=== PATIENT | female | born 1965 | race Caucasian/White ===

== ENCOUNTER 2017-08-05 14:20 | Inpatient (IN) | payer BC ==
[~2017-08-05] VITALS: Ht 162.6 cm; Wt 78.0 kg
[~2017-08-05 14:20] MED LIST: BENTYL PO; BROVANA15 MCG/2 M NEB; CHANTIX1 MG PO; CRESTOR10 MG PO; CRESTOR20 MG PO; ETODOLAC300 MG PO; FOLIC ACID0.4 MG PO; HYDROCHLOROTHIA25 MG PO; JANUVIA100 MG PO; MAXIDE PO; MAXZIDE 37.5 M1 EACH PO; NEXIUM40 MG PO; NORTRIPTYLINE H10 MG PO; PAXIL10 MG PO; PAXIL20 MG PO; PROVENTIL HFA6.7 GM; PROVENTIL HFA6.7 GM INH; PROVENTIL HFA6.7 GM PO; SYMBICORT 16010.2 GM; SYMBICORT 16010.2 GM INH; SYMBICORT 16010.2 GM PO; ULTRAM 50MG50 MG PO; VITAMIN B-12 INJ; VITAMIN B-121000 MCG PO; VITAMIN B12; VITAMIN D35000 UNIT PO; VITAMIN E; combivent inhaler
[2017-08-05] MEDS ORDERED: DIPHENHYDRAMINE HCL INJ 50 MG/ML VIAL IV ONE ×2 (15:15→22:15)
[2017-08-05] MEDS ORDERED: METHYLPREDNISOLONE SOD SUCC 125 MG/2ML VIAL IV ONE (15:15)
[2017-08-05] MEDS ORDERED: SODIUM CHLORIDE 0.9% 100 ML 100 ML IV ONE (15:15)
[2017-08-05 15:43] LABS: BASOPHILS # (AUTO) 0.1 (0.0-0.1); BASOPHILS % 0.2 % (0.0-1.0); EOSINOPHILS % 0.1 % (0.0-6.0); HEMATOCRIT 46.3 % (34.2-44.1); LYMPHOCYTES # (AUTO) 2.9 (1.0-3.2); LYMPHOCYTES % 12.5 % (18.0-39.1); MEAN CORPUSCULAR HEMOGLOBIN 28.7 pg (28-32); MEAN CORPUSCULAR HGB CONC 34.6 g/dL (31-35); MEAN CORPUSCULAR VOLUME 83.1 fL (81-99); MONOCYTES # (AUTO) 1.7 (0.2-0.8); MONOCYTES % 7.4 % (4.4-11.3); NEUTROPHILS # (AUTO) 18.4 (2.1-6.9); NEUTROPHILS % 79.2 % (38.7-80.0); PLATELET COUNT 346 x10e3/uL (140-360); RED BLOOD COUNT 5.57 x10e6/uL (3.6-5.1); RED CELL DISTRIBUTION WIDTH 14.8 % (11.7-14.4)
[2017-08-05 16:06] LABS: INR 1.06; PROTHROMBIN TIME 14.4 seconds (11.9-14.5)
[2017-08-05 16:07] LABS: PARTIAL THROMBOPLASTIN TIME 29.9 seconds (23.8-35.5)
[2017-08-05 16:16] LABS: ALANINE AMINOTRANSFERASE 19 IU/L (0-55); ALBUMIN 3.7 g/dL (3.5-5.0); ALBUMIN/GLOBULIN RATIO 0.9 (0.8-2.0); ALKALINE PHOSPHATASE 93 IU/L (40-150); AMYLASE 35 U/L (25-125); ANION GAP 15.4 mmol/L (8-16); BLOOD UREA NITROGEN 17 mg/dL (7-26); BUN/CREATININE RATIO 16 (6-25); CALCIUM 9.6 mg/dL (8.4-10.2); CARBON DIOXIDE 23 mmol/L (22-29); CHLORIDE 101 mmol/L (98-107); CREATINE KINASE 144 IU/L (29-168); CREATININE, SERUM 1.04 mg/dL (0.57-1.11); EST GLOMERULAR FILTRATION RATE 55 ML/MIN (60-); GLUCOSE 120 mg/dL (74-118); LIPASE 24 U/L (8-78); POTASSIUM 3.4 mmol/L (3.5-5.1); SODIUM 136 mmol/L (136-145)
[2017-08-05 16:27] LABS: EOSINOPHILS % (MANUAL) 1 % (0-7); LYMPHOCYTES % (MANUAL) 6 % (19-48); MONOCYTES % (MANUAL) 8 % (3.4-9.0); NEUTROPHILS % (MANUAL) 85 % (40-74)
[2017-08-05 16:28] LABS: PLATELET ESTIMATE ADEQUATE; PLATELET MORPHOLOGY COMMENT NORMAL; RBC MORPHOLOGY COMMENT NORMAL
[2017-08-05] MEDS: SODIUM CHLORIDE 0.9% 1000ML 1,000 ML IV SCH ×3 (18:54→19:22)
--- NOTE | 2017-08-05 19:00 | Diagnostic Imaging Report ---
EXAMINATION: Head and face CT without contrast. HISTORY: Status post fall, head and face trauma, pain COMPARISON: None. TECHNIQUE: Multidetector axial images were obtained without contrast from the foramen magnum to the vertex and over the face. The images were reconstructed using brain and bone algorithms. Thin section brain images were reformatted into coronal and sagittal planes. Intravenous contrast: None. Head CT findings: Skull: No lytic or blastic lesions. No fractures. Parenchyma: Normal. No mass, hemorrhage or CT evidence of acute vascular insult. Brain volume: Normal for age. Ventricles: No hydrocephalus or displacement. Arteries: No density suggestive of thrombus. Dural sinuses: No abnormal density. Extra-axial spaces: No abnormal density. Foramen magnum: No mass, Chiari malformation, or basilar invagination. Sella: No obvious mass. Face CT findings: Bones: Unremarkable. Facial soft tissues: Unremarkable. Orbits contents: Unremarkable. Paranasal sinuses and drainage pathways: Prominent mucosal inflammatory thickening of partial opacification of the left maxillary sinus. Otherwise clear. Nasal septum and nasal cavities: Midline. Anatomic variations: No significant anatomic variations. Teeth: No acute abnormality of the visualized teeth. IMPRESSION: 1. Normal head CT. Particularly no post traumatic intracranial hemorrhage. 2. No acute facial fractures. 3. Prominent mucosal inflammatory thickening and partial opacification of the left maxillary sinus, likely related to sinusitis. Signed by: Dr. Anahi Khalil M.D. on 08/05/2017 6:56 PM
[2017-08-05] MEDS ORDERED: FUROSEMIDE40 MG PO (19:45)
[2017-08-05] MEDS ORDERED: THEOPHYLLI80 MG/15 M PO (19:45)
[2017-08-05] MEDS ORDERED: PIPER-TAZ 3.375 GM 50 ML IV STA (21:30)
[2017-08-05] MEDS ORDERED: METRONIDAZOLE 500MG/NS 100ML 100 ML IV STA (21:30)
[2017-08-05 23:19] LABS: BILIRUBIN,URINE NEGATIVE (NEGATIVE); CLARITY,URINE HAZY (CLEAR); COLOR,URINE YELLOW (YELLOW); KETONES,URINE NEGATIVE (NEGATIVE); LEUKOCYTE ESTERASE ,URINE NEGATIVE (NEGATIVE); NITRITE,URINE NEGATIVE (NEGATIVE); URINE UROBILINOGEN 0.2 mg/dL (0.2 - 1)
[2017-08-05 23:21] LABS: PROTEIN,URINE DIPSTICK 1+ (NEGATIVE)
[2017-08-05 23:31] LABS: BACTERIA,URINE MODERATE /HPF; EPITHELIAL CELLS,URINE MODERATE /LPF; RBC,URINE 0-5 /HPF (0-5)
--- NOTE | 2017-08-06 00:18 | Diagnostic Imaging Report ---
CHEST 2 VIEWS, Technique: CHEST 2 VIEWS Comparison: None Clinical history: Shortness of breath DISCUSSION: Minimal scattered bibasilar atelectasis. Otherwise normal appearance of the heart, mediastinum, lungs and pleural spaces. IMPRESSION: No acute abnormality Signed by: Dr Liberty Salamanca MD on 08/06/2017 12:15 AM
--- NOTE | 2017-08-06 00:18 | Diagnostic Imaging Report ---
EXAM: CT ABDOMEN/PELVIS W, CT CHEST W INDICATION: \S\left upper abd pain, vomiting and diarrhea \[id number] \S\2220, shortness of breath concern for pulmonary embolism COMPARISON: None. TECHNIQUE: Chest, abdomen and pelvis were scanned utilizing a multidetector helical scanner from the lung apex to the pubic symphysis. CT pulmonary embolism protocol was performed of the chest. Coronal and sagittal reformations were obtained. Note that technical issues resulted in a significant delay in interpretation. IV CONTRAST: 100 mL Isovue 300 FINDINGS: LINES and TUBES: None. LUNGS/AIRWAYS/PLEURA: Mild scattered linear areas of partial atelectasis... The pleural spaces are clear. HEART AND MEDIASTINUM: No mediastinal, hilar or axillary lymphadenopathy. The heart is normal in size.. There is no pericardial effusion. No evidence of acute pulmonary artery embolism. Main pulmonary artery is upper limits of normal, 2.9 cm. HEPATOBILIARY/GALLBLADDER: No focal lesions . Cholecystectomy. SPLEEN: No splenomegaly. PANCREAS: No masses or ductal dilation. ADRENALS: No nodules. KIDNEYS/URETERS: No hydronephrosis. GI TRACT: Moderate thickening with submucosal edema of the descending colon and surrounding inflammatory changes. Normal appendix. PELVIC ORGANS/BLADDER: Unremarkable. LYMPH NODES: No lymphadenopathy. VESSELS: Mild atherosclerotic changes. Visualized central vessels are patent. PERITONEUM / RETROPERITONEUM: No free air or fluid. BONES/SOFT TISSUES: Unremarkable. IMPRESSION: 1. Descending colitis, which may be infectious, inflammatory or ischemic. 2. No evidence of acute pulmonary embolism. Signed by: Dr Liberty Salamanca MD on 08/06/2017 12:14 AM
--- NOTE | 2017-08-06 00:19 | Diagnostic Imaging Report ---
SHOULDER LEFT COMPLETE Comparison: None Clinical history: Trauma, pain Findings: Moderate acromioclavicular degenerative change. No fracture or dislocation. Impression: No acute bony abnormality Signed by: Dr Liberty Salamanca MD on 08/06/2017 12:15 AM
[2017-08-06] MEDS: SODIUM CHLORIDE 0.9% 1000ML 1,000 ML IV SCH ×3 (00:59→17:31)
[2017-08-06] MEDS ORDERED: TRAMADOL HCL 50 MG TAB PO PRN (01:15)
[2017-08-06 01:23] LABS: BASOPHILS % 0.1 % (0.0-1.0); HEMATOCRIT 40.5 % (34.2-44.1); HEMOGLOBIN 13.6 g/dL (12.0-16.0); LYMPHOCYTES # (AUTO) 0.9 (1.0-3.2); LYMPHOCYTES % 4.6 % (18.0-39.1); MEAN CORPUSCULAR HEMOGLOBIN 28.6 pg (28-32); MEAN CORPUSCULAR HGB CONC 33.6 g/dL (31-35); MEAN CORPUSCULAR VOLUME 85.3 fL (81-99); MONOCYTES # (AUTO) 0.2 (0.2-0.8); MONOCYTES % 1.2 % (4.4-11.3); NEUTROPHILS # (AUTO) 18.4 (2.1-6.9); NEUTROPHILS % 93.5 % (38.7-80.0); PLATELET COUNT 262 x10e3/uL (140-360); RED BLOOD COUNT 4.75 x10e6/uL (3.6-5.1); RED CELL DISTRIBUTION WIDTH 14.8 % (11.7-14.4)
[2017-08-06 01:39] LABS: ALANINE AMINOTRANSFERASE 14 IU/L (0-55); ALBUMIN/GLOBULIN RATIO 0.9 (0.8-2.0); ALKALINE PHOSPHATASE 72 IU/L (40-150); AMYLASE 26 U/L (25-125); BLOOD UREA NITROGEN 16 mg/dL (7-26); CALCIUM 8.3 mg/dL (8.4-10.2); CARBON DIOXIDE 21 mmol/L (22-29); GLUCOSE 156 mg/dL (74-118); LIPASE 13 U/L (8-78)
[2017-08-06 01:53] LABS: ANION GAP 12.4 mmol/L (8-16); CHLORIDE 105 mmol/L (98-107); POTASSIUM 3.4 mmol/L (3.5-5.1); SODIUM 135 mmol/L (136-145)
[2017-08-06 01:57] LABS: CREATINE KINASE MB 0.8 ng/mL (0.00-5.00)
[2017-08-06 02:05] LABS: BUN/CREATININE RATIO 17 (6-25); CREATININE, SERUM 0.94 mg/dL (0.57-1.11); EST GLOMERULAR FILTRATION RATE > 60 ML/MIN (60-)
[2017-08-06] MEDS ORDERED: IOPAMIDOL 370 MG/ML 200 ML INFUS..BTL INJ ONE (05:21)
[2017-08-06] MEDS ORDERED: SODIUM CHLORIDE 0.9% 50ML 50 ML ONE (05:21)
[2017-08-06] MEDS: METRONIDAZOLE 500MG/NS 100ML IV SCH ×3 (05:48→17:31)
[2017-08-06] MEDS: PIPER-TAZ 3.375 GM 50 ML IV SCH ×4 (06:32→23:44)
[2017-08-06] MEDS ORDERED: PANTOPRAZOLE 40 MG 10ML VIAL IV SCH (09:00)
[2017-08-06 09:43] LABS: CREATINE KINASE MB 0.9 ng/mL (0.00-5.00)
[2017-08-06] MEDS ORDERED: ALBUTEROL SULFATE HFA 8GM INHALATION AEROSOL INH PRN (15:20)
[2017-08-06 16:52] VITALS: BP 138/88
[2017-08-06 16:58] VITALS: BP 138/88
[2017-08-06 17:11] LABS: CREATINE KINASE MB 0.9 ng/mL (0.00-5.00)
[2017-08-06] MEDS: BUDESONIDE/FORMOTEROL 160/4.5MCG INHALER INH SCH (17:23)
[2017-08-06] MEDS: VARENICLINE 1 MG TAB PO SCH (17:31)
[2017-08-06] MEDS: CYANOCOBALAMIN 1,000 MCG TAB PO SCH (17:31)
[2017-08-06] MEDS: PANTOPRAZOLE SOD 40 MG TABEC PO SCH (17:31)
[2017-08-06] MEDS: ONDANSETRON HCL INJ 2 MG/ML VIAL IV PRN (17:47)
[2017-08-06 20:00] VITALS: BP 119/74
[2017-08-07] VITALS: BP 113/67
[2017-08-07] MEDS: METRONIDAZOLE 500MG/NS 100ML IV SCH ×2 (00:23→06:10)
[2017-08-07] MEDS: SODIUM CHLORIDE 0.9% 1000ML 1,000 ML IV SCH ×3 (00:26→23:00)
[2017-08-07 01:25] VITALS: BP 119/74
[2017-08-07 04:00] VITALS: BP 100/62
[2017-08-07] MEDS: PIPER-TAZ 3.375 GM 50 ML IV SCH ×3 (05:21→17:33)
[2017-08-07] MEDS ORDERED: ACETAMINOPHEN 325 MG TAB PO PRN (05:30)
[2017-08-07 07:04] LABS: BASOPHILS # (AUTO) 0.1 (0.0-0.1); BASOPHILS % 0.3 % (0.0-1.0); EOSINOPHILS # (AUTO) 0.1 (0.0-0.4); EOSINOPHILS % 0.6 % (0.0-6.0); HEMATOCRIT 32.4 % (34.2-44.1); HEMOGLOBIN 10.6 g/dL (12.0-16.0); LYMPHOCYTES # (AUTO) 3.4 (1.0-3.2); LYMPHOCYTES % 23.6 % (18.0-39.1); MEAN CORPUSCULAR HEMOGLOBIN 28.5 pg (28-32); MEAN CORPUSCULAR HGB CONC 32.7 g/dL (31-35); MEAN CORPUSCULAR VOLUME 87.1 fL (81-99); MONOCYTES # (AUTO) 0.8 (0.2-0.8); MONOCYTES % 5.4 % (4.4-11.3); NEUTROPHILS # (AUTO) 10.1 (2.1-6.9); NEUTROPHILS % 69.8 % (38.7-80.0); PLATELET COUNT 227 x10e3/uL (140-360); RED BLOOD COUNT 3.72 x10e6/uL (3.6-5.1); RED CELL DISTRIBUTION WIDTH 15.3 % (11.7-14.4)
[2017-08-07 07:30] LABS: ALBUMIN 2.6 g/dL (3.5-5.0); ANION GAP 10.2 mmol/L (8-16); CALCIUM 8.1 mg/dL (8.4-10.2); CREATININE, SERUM 0.97 mg/dL (0.57-1.11); POTASSIUM 3.2 mmol/L (3.5-5.1)
[2017-08-07] MEDS ORDERED: SIMVASTATIN 40 MG TAB PO SCH (09:00)
[2017-08-07] MEDS ORDERED: BISACODYL 5 MG TAB EC PO ONE ×2 (09:00→13:00)
[2017-08-07] MEDS: FOLIC ACID 0.4 MG PO SCH (09:00)
[2017-08-07] MEDS: CYANOCOBALAMIN 1,000 MCG TAB PO SCH (09:00)
[2017-08-07] MEDS ORDERED: PEG (High)/E-LYTE SOLN 4,000 ML BTL PO ONE (09:00)
[2017-08-07] MEDS ORDERED: HYDROCHLOROTHIAZIDE 25 MG TAB PO SCH (09:00)
[2017-08-07] MEDS: ONDANSETRON HCL INJ 2 MG/ML VIAL IV PRN ×3 (09:01→17:33)
[2017-08-07] MEDS: PAROXETINE HCL 20 MG TAB PO SCH (09:12)
[2017-08-07] MEDS: PANTOPRAZOLE SOD 40 MG TABEC PO SCH ×2 (09:21→15:40)
[2017-08-07] MEDS: SITAGLIPTIN 100 MG TAB PO SCH (09:21)
[2017-08-07] MEDS: FUROSEMIDE 40 MG TAB PO SCH (09:21)
[2017-08-07] MEDS: VARENICLINE 1 MG TAB PO SCH ×2 (09:21→17:00)
[2017-08-07] MEDS: BUDESONIDE/FORMOTEROL 160/4.5MCG INHALER INH SCH (09:30)
[2017-08-07] MEDS ORDERED: VITAMIN B12 INJ SCH (09:45)
[2017-08-07] MEDS ORDERED: CYANOCOBALAMIN INJ 1,000 MCG/ML VIAL IM SCH (10:00)
--- NOTE | 2017-08-07 11:17 | Diagnostic Imaging Report ---
PROCEDURE: Frontal and lateral views of the chest. COMPARISON: 08/05/17 INDICATIONS: COUGH FINDINGS: Lines/tubes: None. Lungs: Limited by body habitus and low lung volumes. No definite focal consolidation. Nipple shadow overlying left lung base. Mild central peribronchovascular thickening/cuffing. Pleura: There is no pleural effusion or pneumothorax. Heart and mediastinum: Cardiac silhouette is enlarged. Bones: No acute bony abnormality. [place] screws overlying the right shoulder. IMPRESSION: Mild central peribronchovascular thickening/cuffing. No focal consolidation. Dictated by: David Tompkins M.D. on 08/07/2017 at 11:26 Electronically approved by: David Tompkins M.D. on 08/07/2017 at 11:26
[2017-08-07] MEDS: METRONIDAZOLE 500MG/NS 100ML 100 ML IV SCH ×2 (11:50→18:00)
[2017-08-07] MEDS ORDERED: PEG (High)/E-LYTE SOLN 4,000 ML BTL ONE (13:00)
[2017-08-07] MEDS ORDERED: CITRATE OF MAGNESIA 300ML BOTTLE PO NR (15:30)
[2017-08-07 16:00] VITALS: BP 132/84
[2017-08-07] MEDS: SIMVASTATIN 40 MG TAB PO SCH (21:00)
[2017-08-08] MEDS: PIPER-TAZ 3.375 GM 50 ML IV SCH ×4 (00:03→18:27)
[2017-08-08] MEDS: METRONIDAZOLE 500MG/NS 100ML 100 ML IV SCH ×4 (00:03→17:08)
[2017-08-08 05:58] LABS: BASOPHILS # (AUTO) 0.1 (0.0-0.1); BASOPHILS % 0.6 % (0.0-1.0); EOSINOPHILS # (AUTO) 0.2 (0.0-0.4); EOSINOPHILS % 1.4 % (0.0-6.0); HEMATOCRIT 34.5 % (34.2-44.1); HEMOGLOBIN 11.3 g/dL (12.0-16.0); LYMPHOCYTES # (AUTO) 2.5 (1.0-3.2); LYMPHOCYTES % 22.8 % (18.0-39.1); MEAN CORPUSCULAR HEMOGLOBIN 28.5 pg (28-32); MEAN CORPUSCULAR HGB CONC 32.8 g/dL (31-35); MEAN CORPUSCULAR VOLUME 87.1 fL (81-99); MONOCYTES # (AUTO) 0.8 (0.2-0.8); MONOCYTES % 7.2 % (4.4-11.3); NEUTROPHILS # (AUTO) 7.4 (2.1-6.9); NEUTROPHILS % 67.6 % (38.7-80.0); PLATELET COUNT 243 x10e3/uL (140-360); RED BLOOD COUNT 3.96 x10e6/uL (3.6-5.1); RED CELL DISTRIBUTION WIDTH 14.9 % (11.7-14.4)
[2017-08-08 06:30] LABS: ALANINE AMINOTRANSFERASE 12 IU/L (0-55); ALBUMIN 2.8 g/dL (3.5-5.0); ALKALINE PHOSPHATASE 55 IU/L (40-150); ANION GAP 11.1 mmol/L (8-16); BLOOD UREA NITROGEN 11 mg/dL (7-26); BUN/CREATININE RATIO 12 (6-25); CALCIUM 8.1 mg/dL (8.4-10.2); CARBON DIOXIDE 24 mmol/L (22-29); CHLORIDE 110 mmol/L (98-107); CREATININE, SERUM 0.91 mg/dL (0.57-1.11); EST GLOMERULAR FILTRATION RATE > 60 ML/MIN (60-); GLUCOSE 85 mg/dL (74-118); POTASSIUM 3.1 mmol/L (3.5-5.1); SODIUM 142 mmol/L (136-145)
--- NOTE | 2017-08-08 06:32 | Consultation ---
DATE OF CONSULTATION: August 07, 2017 This is a 51 year old known to me who presented to the hospital with abdominal pain, which is mainly in the left lower quadrant area followed by rectal bleeding, which is described as bright red blood per rectum. She has some nausea and vomiting, but denies any hematemesis. Her workup on admission showed a WBC of 23,000. This is down to 14,000 as of yesterday. She also had a CT scan of the abdomen and pelvis that was done on admission, which shows descending colitis. She has been started on antibiotics. Her other medical problems significant for diabetes, history of metabolic syndrome, history of hypertension, history of hyperlipidemia. ALLERGIES: NONE. SOCIAL HISTORY: Denies any alcohol use. FAMILY HISTORY: Noncontributory. REVIEW OF SYSTEMS: Denies any chest pain or shortness of breath. Denies any dysphagia or odynophagia. Denies any dysuria or hematuria or any kind of syncopal episode. PHYSICAL EXAMINATION GENERAL: Awake, alert and noted to be stable. No acute distress at this point. VITAL SIGNS: Afebrile currently. HEENT: Normocephalic. Sclerae are anicteric. NECK: Soft and supple. HEART: Sounds regular. ABDOMEN: Soft. There is no rebound at this point. It is nontender. Some tenderness in the left lower quadrant area. There is no rebound or mass. EXTREMITIES: No clubbing. LAB VALUES: WBC as of yesterday morning is WBC of 14.5, hemoglobin 10.6, hematocrit 32.4. CMP: Potassium is 3.2. The rest of the CMP was okay. CT scan showed evidence of descending colitis. IMPRESSION 1. Pain with rectal bleeding: Computerized tomography scan showed evidence of ischemic colitis. 2. History of diabetes. 3. History of hypertension. RECOMMENDATIONS: Continue antibiotics at this point. We will proceed with colonoscopy tomorrow. Follow labs and clinically. Job#: [id number] RI cc:DAWN HUTCHINS MD
[2017-08-08] MEDS: BUDESONIDE/FORMOTEROL 160/4.5MCG INHALER INH SCH ×3 (07:38→20:15)
[2017-08-08 08:15] VITALS: BP 108/73
[2017-08-08] MEDS: PAROXETINE HCL 20 MG TAB PO SCH (08:29)
[2017-08-08] MEDS: VARENICLINE 1 MG TAB PO SCH ×2 (08:29→17:08)
[2017-08-08] MEDS: FUROSEMIDE 40 MG TAB PO SCH (08:29)
[2017-08-08] MEDS: FOLIC ACID 0.4 MG PO SCH (08:29)
[2017-08-08] MEDS: PANTOPRAZOLE SOD 40 MG TABEC PO SCH ×2 (08:29→17:08)
[2017-08-08] MEDS: SITAGLIPTIN 100 MG TAB PO SCH (08:29)
[2017-08-08] MEDS ORDERED: THEOPHYLLINE 80 MG/15 ML SYRP PO SCH (09:00)
[2017-08-08 12:00] VITALS: BP 109/69
[2017-08-08] MEDS: SODIUM CHLORIDE 0.9% 1000ML 1,000 ML IV SCH (13:23)
[2017-08-08] MEDS: ONDANSETRON HCL INJ 2 MG/ML VIAL IV PRN (15:05)
[2017-08-08 16:25] VITALS: BP 93/66
[2017-08-08] MEDS ORDERED: PROMETHAZINE 12.5MG/ NACL 0.9% 12.5 MG/50 ML BAG IV PRN (19:00)
[2017-08-08] MEDS ORDERED: FENTANYL CITRATE/PF 100MCG/2 ML INJ ONE (19:02)
[2017-08-08] MEDS ORDERED: MIDAZOLAM HCL 2 MG/2 ML VIAL ONE (19:02)
[2017-08-08] MEDS ORDERED: ONDANSETRON HCL INJ 2 MG/ML VIAL ONE (19:52)
[2017-08-08] MEDS ORDERED: PROPOFOL IV EMULSION 10 MG/ML 50 ML VIAL ONE (19:52)
[2017-08-08] MEDS ORDERED: LIDOCAINE HCL 2% LOCAL INJ 5 ML SDV VIAL INJ ONE (19:52)
[2017-08-08 20:00] VITALS: BP 98/55
[2017-08-08] MEDS: SIMVASTATIN 40 MG TAB PO SCH (21:00)
[2017-08-09] VITALS (7 sets, daily range): BP systolic 98–126; BP diastolic 55–77
[2017-08-09] MEDS: SODIUM CHLORIDE 0.9% 1000ML 1,000 ML IV SCH ×2 (01:40→15:00)
[2017-08-09] MEDS: PIPER-TAZ 3.375 GM 50 ML IV SCH ×5 (06:00→23:14)
[2017-08-09] MEDS: METRONIDAZOLE 500MG/NS 100ML 100 ML IV SCH ×5 (06:00→23:14)
[2017-08-09 06:21] LABS: BASOPHILS % 0.5 % (0.0-1.0); EOSINOPHILS # (AUTO) 0.1 (0.0-0.4); EOSINOPHILS % 1.6 % (0.0-6.0); HEMATOCRIT 32.9 % (34.2-44.1); HEMOGLOBIN 10.9 g/dL (12.0-16.0); LYMPHOCYTES # (AUTO) 2.6 (1.0-3.2); LYMPHOCYTES % 29.5 % (18.0-39.1); MEAN CORPUSCULAR HEMOGLOBIN 28.5 pg (28-32); MEAN CORPUSCULAR HGB CONC 33.1 g/dL (31-35); MEAN CORPUSCULAR VOLUME 85.9 fL (81-99); MONOCYTES # (AUTO) 0.7 (0.2-0.8); MONOCYTES % 8.1 % (4.4-11.3); NEUTROPHILS # (AUTO) 5.3 (2.1-6.9); PLATELET COUNT 256 x10e3/uL (140-360); RED BLOOD COUNT 3.83 x10e6/uL (3.6-5.1); RED CELL DISTRIBUTION WIDTH 14.7 % (11.7-14.4)
[2017-08-09 06:50] LABS: BLOOD UREA NITROGEN 8 mg/dL (7-26); BUN/CREATININE RATIO 9 (6-25); CALCIUM 8.2 mg/dL (8.4-10.2); CARBON DIOXIDE 24 mmol/L (22-29); CHLORIDE 109 mmol/L (98-107); CREATININE, SERUM 0.87 mg/dL (0.57-1.11); EST GLOMERULAR FILTRATION RATE > 60 ML/MIN (60-); GLUCOSE 84 mg/dL (74-118); SODIUM 141 mmol/L (136-145)
[2017-08-09] MEDS: BUDESONIDE/FORMOTEROL 160/4.5MCG INHALER INH SCH ×2 (07:00→20:15)
[2017-08-09] MEDS: FUROSEMIDE 40 MG TAB PO SCH (08:33)
[2017-08-09] MEDS: VARENICLINE 1 MG TAB PO SCH ×2 (08:33→16:31)
[2017-08-09] MEDS: PAROXETINE HCL 20 MG TAB PO SCH (08:33)
[2017-08-09] MEDS: THEOPHYLLINE 200 MG TABCR PO SCH (08:33)
[2017-08-09] MEDS: SITAGLIPTIN 100 MG TAB PO SCH (08:33)
[2017-08-09] MEDS: PANTOPRAZOLE SOD 40 MG TABEC PO SCH ×2 (08:33→16:31)
[2017-08-09] MEDS: FOLIC ACID 0.4 MG PO SCH (09:00)
[2017-08-09] MEDS: SIMVASTATIN 40 MG TAB PO SCH (21:18)
[2017-08-10] VITALS: BP 117/68
[2017-08-10] MEDS: SODIUM CHLORIDE 0.9% 1000ML 1,000 ML IV SCH (03:33)
[2017-08-10 04:00] VITALS: BP 133/77
[2017-08-10] MEDS: METRONIDAZOLE 500MG/NS 100ML 100 ML IV SCH ×2 (05:04→14:02)
[2017-08-10] MEDS: PIPER-TAZ 3.375 GM 50 ML IV SCH ×2 (05:04→13:20)
[2017-08-10 07:20] VITALS: BP 124/94
[2017-08-10 08:20] VITALS: BP 124/94
[2017-08-10] MEDS: PANTOPRAZOLE SOD 40 MG TABEC PO SCH (08:27)
[2017-08-10] MEDS: FUROSEMIDE 40 MG TAB PO SCH (08:27)
[2017-08-10] MEDS: VARENICLINE 1 MG TAB PO SCH (08:27)
[2017-08-10] MEDS: SITAGLIPTIN 100 MG TAB PO SCH (08:27)
[2017-08-10] MEDS: THEOPHYLLINE 200 MG TABCR PO SCH (08:27)
[2017-08-10] MEDS: PAROXETINE HCL 20 MG TAB PO SCH (08:27)
[2017-08-10] MEDS: FOLIC ACID 0.4 MG PO SCH (09:00)
[2017-08-10] MEDS: BUDESONIDE/FORMOTEROL 160/4.5MCG INHALER INH SCH (09:15)
[2017-08-10 12:19] VITALS: BP 117/83
--- NOTE | 2017-09-21 17:33 | Discharge Summary ---
The patient was admitted to the hospital for intractable diarrhea. The patient was found to have colitis, started on Zosyn and Flagyl. The patient was restarted on her home medications except for the new Trulicity, which we discontinued. Patient was started on sitagliptin. Hemoglobin was monitored, was at 10.9 and 32.9. INR was also monitored for any bleeding diathesis. BUN and creatinine were monitored. The patient was put on fluids. A consult with Dr. Bernal was done. Endoscopy was done, which showed ischemic colitis. The patient was feeling better. Nausea and vomiting were getting better. The patient was on Zofran. Patient was also started on Chantix for history of smoking. Lasix was restarted from her home medication, and promethazine as needed for nausea was also given. The patient was feeling better after the scope, restarted on her clear-liquid diet. The patient tolerated a regular diet. The patient was discharged to home. FINAL DIAGNOSES 1. Ischemic colitis. 2. History of smoking. 3. History of hypertension. 4. History of diabetes mellitus. Plan is to continue monitoring the patient as an outpatient basis, and all her home medications were reinstated on discharge and the patient was discharged on Cipro and Flagyl. For further information, look in the chart. For information on discharge medications, look in the medical reconciliation sheet. DAWN HUTCHINS MD Job#: [id number] CHRISTI
[2018-03-07] MEDS ORDERED: MELOXICAM7.5 MG PO (11:37)
[2018-03-07] MEDS ORDERED: CARVEDILOL3.125 MG PO (11:37)
== END 2017-08-10 15:11 | disposition home or self-care (01) | DRG 395 ==
LOC: ER 14:20 → ERHOLD 08-06 00:44 → MED/SURG 08-06 16:07 → MED/SURG2 08-07 15:03
PROVIDERS: ADMIT Family Medicine; ATTEND Family Medicine
PROC: 0DBM8ZX Excision of Descending Colon, Via Natural or Artificial Opening Endoscopic, Diagnostic (ICD-10-PCS; principal; 2017-08-08 06:42)
PROC: 0DBP8ZZ Excision of Rectum, Via Natural or Artificial Opening Endoscopic (ICD-10-PCS; 2017-08-08 06:42)
DX: K55.9 Vascular disorder of intestine, unspecified (principal); E88.81 Metabolic syndrome and other insulin resistance; I10 Essential (primary) hypertension; D64.9 Anemia, unspecified; E11.9 Type 2 diabetes mellitus without complications; F32.9 Major depressive disorder, single episode, unspecified; K62.1 Rectal polyp; E86.0 Dehydration; K57.30 Diverticulosis of large intestine without perforation or abscess without bleeding; K64.8 Other hemorrhoids; E78.5 Hyperlipidemia, unspecified; F17.210 Nicotine dependence, cigarettes, uncomplicated; R55 Syncope and collapse; S00.83XA Contusion of other part of head, initial encounter; S40.012A Contusion of left shoulder, initial encounter; W19.XXXA Unspecified fall, initial encounter; Y92.009 Unspecified place in unspecified non-institutional (private) residence as the place of occurrence of the external cause
CPT/HCPCS: 36415; 45380; 45384; 70450; 70486; 71046; 71260; 74177; 80048; 80053; 81001; 82150; 82550; 82553; 82948; 83605; 83690; 84484; 84702; 85025; 85379; 85610; 85730; 87040; 87086; 88305; 93005; 94640; 97139; 99284; J1200; J2001; J2250; J2405; J2543; J2550; J2930; J7030; Q9967

== ENCOUNTER → 2017-08-25 | Outpatient (CLI) | payer BC ==
[~2017-08-25] MED LIST changes: +FUROSEMIDE40 MG PO; +THEOPHYLLI80 MG/15 M PO
== END ==
LOC: SLEEP 19:22
PROVIDERS: ATTEND Family Medicine
DX: G47.33 Obstructive sleep apnea (adult) (pediatric) (principal)
CPT/HCPCS: 95810

== ENCOUNTER 2018-02-22 14:30 | Inpatient (IN) | payer BC ==
[~2018-02-22] VITALS: Ht 162.6 cm; Wt 76.2 kg
[2018-02-22] MEDS ORDERED: SODIUM CHLORIDE 0.9% 1000ML 1,000 ML IV STA (14:56)
--- NOTE | 2018-02-22 16:30 | Diagnostic Imaging Report ---
Examination: Single AP view of the chest. COMPARISON: Chest PA and lateral 08/07/2012 INDICATION: Syncopal episode IMPRESSION: 1. Lines and Tubes: None 2. Lungs are grossly clear. No consolidation or effusion. 3. Cardiomediastinal silhouette is normal. Pulmonary vasculature is normal. 4. No acute bony abnormalities. Signed by: Dr. Eh Rm M.D. on 02/22/2018 4:27 PM
--- NOTE | 2018-02-22 16:47 | Diagnostic Imaging Report ---
ADDENDUM #1 Dose modulation, iterative reconstruction, and/or weight based adjustment of the mA/kV was utilized to reduce the radiation dose to as low as reasonably achievable. Signed by: Dr. Anahi Khalil M.D. on 02/26/2018 10:08 AM ORIGINAL REPORT EXAMINATION: CT of the cervical spine HISTORY: Status post fall, pain COMPARISON: None available TECHNIQUE: Multidetector helical axial images were obtained without contrast from the foramen magnum to T1. The images were reconstructed using bone and soft tissue algorithms and were viewed in axial, sagittal and coronal planes. FINDINGS: Alignment: Normal alignment and lordosis Soft tissues: Normal Vertebrae: Normal height and density. No acute fracture, infection or neoplasm Degenerative changes: No significant congestive changes, no spinal canal or foraminal stenosis. IMPRESSION: No acute cervical spine postraumatic abnormalities. Note: Acute postraumatic spinal cord, vascular or ligamentous injuries cannot adequately be assessed by CT. Signed by: Dr. Anahi Khalil M.D. on 02/22/2018 4:43 PM
--- NOTE | 2018-02-22 16:59 | Diagnostic Imaging Report ---
ADDENDUM #1 Dose modulation, iterative reconstruction, and/or weight based adjustment of the mA/kV was utilized to reduce the radiation dose to as low as reasonably achievable. Signed by: Dr. Anahi Khalil M.D. on 02/26/2018 9:58 AM ADDENDUM #2 Dose modulation, iterative reconstruction, and/or weight based adjustment of the mA/kV was utilized to reduce the radiation dose to as low as reasonably achievable. Signed by: Dr. Anahi Khalil M.D. on 02/26/2018 3:29 PM ORIGINAL REPORT EXAMINATION: Head and face CT without contrast. HISTORY: Syncopal episode, status post fall, head trauma, facial pain and swelling along the mandible. COMPARISON: Head and face CT on 08/05/2017 TECHNIQUE: Multidetector axial images were obtained without contrast from the foramen magnum to the vertex and over the face. The images were reconstructed using brain and bone algorithms. Thin section brain images were reformatted into coronal and sagittal planes. Head CT findings: Skull: No lytic or blastic lesions. No fractures. Parenchyma: Normal. No mass, hemorrhage or CT evidence of acute vascular insult. Brain volume: Normal for age. Ventricles: No hydrocephalus or displacement. Arteries: No density suggestive of thrombus. Dural sinuses: No abnormal density. Extra-axial spaces: No abnormal density. Foramen magnum: No mass, Chiari malformation, or basilar invagination. Sella: No obvious mass. Face CT findings: Bones: Unremarkable. Facial soft tissues: Unremarkable. Orbits contents: Unremarkable. Paranasal sinuses and drainage pathways: Minimal mucosal inflammatory thickening of the ethmoidal sinuses, otherwise clear. Nasal septum and nasal cavities: Mild right anterior and prominent left posterior nasal septal deviation. Anatomic variations: No significant anatomic variations. Teeth: No acute abnormality of the visualized teeth. IMPRESSION: 1. No acute posttraumatic intracranial abnormalities, particularly no hemorrhage, unchanged from head CT of 02/22/2018. 2. No acute facial fractures, unchanged from maxillofacial CT on 08/05/2017. Signed by: Dr. Anahi Khalil M.D. on 02/22/2018 4:56 PM
[2018-02-22 17:16] LABS: BASOPHILS # (AUTO) 0.1 (0.0-0.1); BASOPHILS % 0.4 % (0.0-1.0); EOSINOPHILS # (AUTO) 0.1 (0.0-0.4); EOSINOPHILS % 0.6 % (0.0-6.0); HEMATOCRIT 42.3 % (34.2-44.1); LYMPHOCYTES # (AUTO) 1.6 (1.0-3.2); LYMPHOCYTES % 11.9 % (18.0-39.1); MEAN CORPUSCULAR HEMOGLOBIN 28.4 pg (28-32); MEAN CORPUSCULAR HGB CONC 33.1 g/dL (31-35); MEAN CORPUSCULAR VOLUME 85.8 fL (81-99); MONOCYTES # (AUTO) 0.9 (0.2-0.8); MONOCYTES % 6.7 % (4.4-11.3); NEUTROPHILS # (AUTO) 11.1 (2.1-6.9); NEUTROPHILS % 79.9 % (38.7-80.0); PLATELET COUNT 290 x10e3/uL (140-360); RED BLOOD COUNT 4.93 x10e6/uL (3.6-5.1); RED CELL DISTRIBUTION WIDTH 15.7 % (11.7-14.4)
[2018-02-22 17:30] LABS: CLARITY,URINE HAZY (CLEAR); COLOR,URINE YELLOW (YELLOW)
[2018-02-22 17:31] LABS: BILIRUBIN,URINE NEGATIVE (NEGATIVE); KETONES,URINE NEGATIVE (NEGATIVE); LEUKOCYTE ESTERASE ,URINE NEGATIVE (NEGATIVE); NITRITE,URINE NEGATIVE (NEGATIVE); PROTEIN,URINE DIPSTICK TRACE (NEGATIVE); URINE UROBILINOGEN 0.2 mg/dL (0.2 - 1)
[2018-02-22 17:32] LABS: INR 1.13; PROTHROMBIN TIME 13.6 seconds (11.9-14.5)
[2018-02-22 17:33] LABS: PARTIAL THROMBOPLASTIN TIME 25.5 seconds (23.8-35.5)
[2018-02-22 17:34] LABS: EPITHELIAL CELLS,URINE MANY /LPF; RBC,URINE >50 /HPF (0-5)
[2018-02-22 17:35] LABS: BACTERIA,URINE FEW /HPF
[2018-02-22 17:42] LABS: ALBUMIN 3.6 g/dL (3.5-5.0); CALCIUM 9.2 mg/dL (8.4-10.2); CREATININE, SERUM 1.02 mg/dL (0.57-1.11)
[2018-02-22 17:57] LABS: THYROID STIMULATING HORMONE 0.852 uIU/mL (0.350-4.940)
[2018-02-22] MEDS ORDERED: TRULANCE PO (18:09)
[2018-02-22] MEDS ORDERED: NUCYNTA50 MG PO (18:09)
[2018-02-22] MEDS ORDERED: ULTRAM50 MG PO (18:09)
[2018-02-22] MEDS ORDERED: POTASSIUM CHLORIDE 20 MEQ TAB CR PO STA (18:11)
[2018-02-22] MEDS ORDERED: ACETAMINOPHEN 325 MG TAB PO PRN (18:15)
[2018-02-22] MEDS ORDERED: POTASSIUM CHLORIDE 10MEQ/100ML 100 ML IV ONE (18:15)
[2018-02-22 18:44] VITALS: BP 128/79
[2018-02-22 18:45] VITALS: BP 128/79
[2018-02-22 19:24] VITALS: BP 128/79
[2018-02-22] MEDS ORDERED: SODIUM CHLORIDE 0.9% 250ML 250 ML ONE (20:51)
[2018-02-22] MEDS ORDERED: ALBUTEROL SULFATE HFA 8GM INHALATION AEROSOL INH PRN (21:00)
[2018-02-22] MEDS ORDERED: TAPENTADOL HCL 50 MG PO PRN (21:00)
[2018-02-22] MEDS: TRAMADOL HCL 50 MG TAB PO PRN (21:39)
--- NOTE | 2018-02-22 22:48 | Consultation ---
DATE OF CONSULTATION: February 22, 2018 CARDIOLOGY CONSULTATION REASON FOR CONSULTATION: Syncope. CHIEF COMPLAINT: "I passed out and hit my face." HISTORY OF PRESENT ILLNESS: Patient is a 52-year-old female with history of hypertension, hyperlipidemia and asthma, who had recent shoulder surgery, was in her usual state of health and shopping at a store. She said she remembers feeling warm and breaking out into a sweat, as well as feeling like she needs to use the restroom and then suddenly she blacked out and remembers just waking up on the floor with pain in her face and then when she stood up one more time she passed out and hit her face. She was brought to the emergency room and we were consulted for evaluation of syncope. REVIEW OF SYSTEMS: As above, otherwise negative. PAST MEDICAL HISTORY: 1. Hypertension. 2. Asthma. 3. Hyperlipidemia. 4. Palpitations. FAMILY HISTORY: No family history of early sudden cardiac . Father had bypass surgery in his 60s. SOCIAL HISTORY: Patient does not smoke, drink or use drugs. OBJECTIVE: VITAL SIGNS: Temperature 97.9, pulse 70, respiratory rate 18, blood pressure 128/79, satting 97% on room air. GENERAL: Obese white female, in no acute distress. Bruises on her face. CARDIOVASCULAR: PMI nondisplaced. Regular rate and rhythm. No murmurs, rubs or gallops. Palpable carotid pulses. Palpable radial pulses. Palpable pedal pulses. ABDOMEN: Soft, nontender, nondistended. RESPIRATORY: No respiratory distress. Lungs are clear to auscultation bilaterally. NEURO AND PSYCH: Alert and oriented to person, place and time. Normal affect. LABORATORY DATA: Reviewed. BNP of 14. Potassium of 3. White count of 13.8. Urine suggestive of possible UTI versus contaminated sample. EKG: Reviewed, shows normal sinus rhythm. IMAGING DATA: Reviewed. TELEMETRY DATA: Reviewed, shows normal sinus rhythm. No tachy or bradyarrhythmias. ASSESSMENT: 1. Syncope and collapse. 2. Possible urinary tract infection. 3. Hyperlipidemia. 4. Asthma. PLAN: Based on patient's history, sounds like episode of vasovagal syncope likely triggered by pain and possibly dehydration as patient is both on Lasix and hydrochlorothiazide as an outpatient. Recommend fluid resuscitation with IV fluids. An echocardiogram, set of cardiac enzymes to start cardiac workup. Will continue monitoring on telemetry for any signs of arrhythmias. Thank you for the consult. Will continue to follow. Job#: [id number] EMILIE
[2018-02-23 00:02] VITALS: BP 129/76
[2018-02-23 04:00] VITALS: BP 149/89
[2018-02-23] MEDS: TRAMADOL HCL 50 MG TAB PO PRN ×4 (04:46→20:15)
[2018-02-23] MEDS ORDERED: IBUPROFEN 400 MG TAB PO PRN (06:00)
[2018-02-23] MEDS: LEVOFLOXACIN 500MG/D5W 100ML 100 ML IV SCH (06:47)
[2018-02-23 07:45] VITALS: BP 139/69
[2018-02-23] MEDS ORDERED: PLECANATIDE PO SCH (09:00)
[2018-02-23] MEDS ORDERED: NON-FORMULARY MEDICATION (Theophylline Anhydrous (Theophylline) 400 MG) PO SCH ×2 (09:00)
[2018-02-23] MEDS: PLECANATIDE PO SCH (09:00)
[2018-02-23] MEDS ORDERED: BUDESONIDE/FORMOTEROL 160/4.5MCG INHALER INH SCH (09:00)
[2018-02-23] MEDS ORDERED: PAROXETINE HCL 20 MG PO SCH (09:00)
[2018-02-23] MEDS ORDERED: SIMVASTATIN 40 MG TAB PO SCH (09:00)
[2018-02-23] MEDS ORDERED: FUROSEMIDE 40 MG TAB PO SCH (09:00)
[2018-02-23] MEDS: HYDROCHLOROTHIAZIDE 25 MG TAB PO SCH (09:56)
[2018-02-23] MEDS: SITAGLIPTIN 100 MG TAB PO SCH (09:56)
[2018-02-23] MEDS: VARENICLINE 1 MG TAB PO SCH ×2 (09:56→17:26)
[2018-02-23] MEDS: FUROSEMIDE 20 MG TAB PO SCH (09:57)
[2018-02-23] MEDS: THEOPHYLLINE 200 MG TABCR PO SCH (09:57)
[2018-02-23] MEDS: PAROXETINE HCL 20 MG TAB PO SCH (09:57)
[2018-02-23] MEDS: PANTOPRAZOLE SOD 40 MG TABEC PO SCH ×2 (10:20→17:26)
[2018-02-23 12:18] VITALS: BP 125/79
--- NOTE | 2018-02-23 15:56 | Progress Note ---
DATE: February 23, 2018 CARDIOLOGY PROGRESS NOTE SUBJECTIVE: No major events overnight. Feels better today. Breathing much better. Chest pain has improved significantly. Off nitro drip. REVIEW OF SYSTEMS: As above, otherwise negative. OBJECTIVE VITAL SIGNS: Temperature 97.6, pulse 64, respiratory rate 20, blood pressure 125/79, satting 97% on room air. GENERAL: An obese, female in no acute distress. CARDIOVASCULAR: Regular rate and rhythm. No murmurs, rubs or gallops. Palpable carotid pulses. Palpable radial pulses. Palpable pedal pulses. LUNGS: Clear to auscultation bilaterally. No respiratory distress. ABDOMEN: Obese, soft, nontender. EXTREMITIES: With 1+ edema. No varicosities. NEURO/PSYCHIATRIC: Alert and oriented to person, place and time. Normal affect. LABORATORY DATA: Reviewed. MEDICATIONS: Reviewed. IMAGING: Data reviewed. Echocardiogram revealed by me shows normal EF with concentric LVH and impaired diastolic function with LV end-diastolic pressures. No significant valvular abnormalities. ASSESSMENT 1. Acute diastolic heart failure. 2. Hypertensive urgency. 3. Pulmonary edema. 4. Hypertensive heart disease. 5. Hyperlipidemia. PLAN: The patient feels better after diuresis and better blood pressure control. Continue carvedilol 25 mg b.i.d. as well as losartan as prescribed. Will convert to oral furosemide tomorrow. Continue to diurese with IV diuretics today. No ischemic cardiac workup needed at this time. Will discuss this further with the patient as an outpatient. Suspect this is all related to her poorly controlled hypertension. The patient was recently diagnosed with sleep apnea and started using CPAP at home, so this will also help controlling her high blood pressure. Thank you for this consult. Will continue to follow. Job#: [id number]
[2018-02-23 15:59] VITALS: BP 115/78
--- NOTE | 2018-02-23 16:24 | Progress Note ---
DATE: February 23, 2018 CARDIOLOGY PROGRESS NOTE SUBJECTIVE: No major events overnight. She complains about pain in her jaw and the left side of her face, otherwise no chest pain, presyncope or syncope. No palpitations overnight. REVIEW OF SYSTEMS: As above, otherwise negative. OBJECTIVE VITAL SIGNS: Temperature 97.6, heart rate 64, respiratory rate 20, blood pressure 125/79, satting 97% on room air. GENERAL: White female in no acute distress. CARDIOVASCULAR: Regular rate and rhythm. No murmurs, rubs or gallops. Palpable carotid pulses. Palpable radial pulses. Palpable pedal pulses. LUNGS: Clear to auscultation bilaterally. No respiratory distress. ABDOMEN: Soft and nontender, nondistended. No masses. NEURO/PSYCHIATRIC: Alert and oriented to person, place and time. Normal affect. LABORATORY DATA: Reviewed. MEDICATIONS: Reviewed. IMAGING: Reviewed. ASSESSMENT 1. Syncope and collapse. 2. Urinary tract infection. 3. Hyperlipidemia. 4. Asthma. PLAN: Echocardiogram is pending based on history, likely episode of vasovagal syncope triggered by pain and possible dehydration as well as UTI. Will follow up on her echocardiogram results and if everything is normal, no further cardiac workup needed at this time, the patient can follow up with us in the office as an outpatient and if she has any further episodes will do further testing including ambulatory ECG monitoring as needed and maybe a tilt table test. Thank you for this consult. We will continue to follow. Job#: [id number]
[2018-02-23 20:00] VITALS: BP_SYST 131; BP_DIAS 65; BP_DIAS 68
--- NOTE | 2018-02-23 23:59 | Consultation ---
DATE OF CONSULTATION: February 23, 2018 NEUROLOGY CONSULT NOTE HISTORY OF PRESENT ILLNESS: Ms. Higgins is a 52-year-old right hand dominant woman with past medical history significant for hypertension, diabetes mellitus type 2, and asthma, admitted to [facility] on February 22, 2018 following multiple syncopal events. On the afternoon of admission, the patient was standing in a store when she suddenly fainted, falling forward and landing on the left side of her face. Immediately prior to the loss of consciousness, the patient experienced abdominal pain, shortness of breath, and diaphoresis. Ms. Higgins does not report chest pain or tightness, palpitations, or dizziness. While unconscious, there was no tonic or tonic clonic activity. There was no tongue biting or bladder/bowel incontinence. The patient is uncertain as to how long she remained unconscious. When she regained consciousness, she was at her neurological baseline. After regaining consciousness, Ms. Higgins sat up right on the floor for few minutes. As she went to stand, she once again lost consciousness. Once again, there was no seizure activity witnessed with this event. Ms. Higgins does endorse a prior syncopal event occurring in July 2017. Ms. Higgins reports syncopal event occurred when she developed acute ischemic colitis. Ms. Higgins does not report a history of febrile seizures. There is no known family history of seizures. The patient does not endorse a prior history of head trauma or meningitis/encephalitis. Ms. Higgins does not report a visual field cut or other disturbance, dysarthria, aphasia, facial droop, weakness, numbness, impairment of balance or gait, dizziness, or confusion. REVIEW OF SYSTEMS: Abdominal pain, joint pain affecting the left shoulder, diaphoresis, shortness of breath. Otherwise, the 12-point review of systems is negative. PAST MEDICAL HISTORY: Hypertension, diabetes mellitus type 2, asthma, prior history of ischemic colitis, prior history of vulvar cancer. PAST SURGICAL HISTORY: Four reconstructive surgeries of the right shoulder, left rotator cuff and biceps repair, right foot surgery to repair a fracture, left foot surgery to repair a ligament, irrigation and debridement of abscesses on the chin and throat, right hand surgery for cat scratch fever, breast reduction, right knee surgery for meniscus repair, right finger fusion, cholecystectomy, resection of vulvar cancer. PAST HOSPITALIZATIONS: Surgeries/procedures as listed, ischemic colitis, pneumonia. FAMILY MEDICAL HISTORY: The patient's paternal and maternal grandparents are . Their medical histories are unknown. The patient's father is . He had a history of coronary artery disease, congestive heart failure, and rheumatoid arthritis. The patient's mother is alive. She has diabetes mellitus as well as a prior history of leukemia. Ms. Higgins has 2 sisters and one-half brother, all of whom are alive. Her younger sister has thyroid disease. Her eldest sister and half brother are healthy. The patient has no biological children. SOCIAL HISTORY: The patient is . 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 The patient does endorse tobacco use "off and on for many years." The patient quit smoking cigarettes approximately 2 weeks ago. Ms. Higgins does report occasional alcohol use. She does not endorse current or prior recreational drug use. HOME MEDICATIONS: Proventil HFA 2 puffs inhaled as needed for shortness of breath, Symbicort 160 per 4.5 mcg 1 puff inhaled twice daily, Nexium 40 mg by mouth twice daily, Lasix 20 mg by mouth daily, hydrochlorothiazide 12.5 mg by mouth daily, Paxil 20 mg by mouth daily, Crestor 40 mg by mouth daily, Januvia 100 mg by mouth daily, Nucynta 50 mg by mouth every 6 hours as needed, theophylline 400 mg by mouth daily, tramadol 50 mg by mouth every 6 hours as needed, Chantix 1 mg by mouth twice daily, Trulance 4 mg by mouth daily. ALLERGIES: ADHESIVE FOR STERI-STRIPS, SULFA, CEFAZOLIN, CEPHALEXIN, CLINDAMYCIN, CODEINE, HYDROCODONE, IODINE, KETOROLAC, MEPERIDINE, METFORMIN, NICKEL, NIFEDIPINE, OXYCODONE, POVIDINE-IODINE, SOAP, TETRACYCLINE, VANCOMYCIN. NO KNOWN FOOD ALLERGIES. NO KNOWN ALLERGY TO LATEX. PHYSICAL EXAMINATION: VITAL SIGNS: Height 64 inches, weight 168 pounds, BMI 28.8 kg/sq m. Blood pressure 115/78 mmHg, pulse 69 beats per minute, respiratory rate 20 breaths per minute, oxygen saturation 95% on room air. GENERAL: The patient is awake and alert, does not appear distressed. Overweight. HEENT: Normocephalic. There is swelling and bruising over the left side of the face. Pupils are equal, round, and reactive to light. Moist mucous membranes. NECK: Supple. No appreciable thyromegaly. No appreciable carotid bruits. CARDIOVASCULAR: S1, S2, regular rate and rhythm. No murmurs, rubs, or gallops. RESPIRATORY: Clear to auscultation bilaterally. No wheezes, rhonchi, or rales. EXTREMITIES: The skin is warm and dry. No clubbing, cyanosis, or edema. The posterior tibial and dorsalis pedis pulses are 1+ and symmetric. The left arm is in a sling. SKIN: No rashes or lesions. NEUROLOGIC EXAMINATION: MEMORY/ATTENTION: The patient is awake and alert, oriented to person, place, time, and situation. CRANIAL NERVES: Cranial nerve I - not tested. Cranial nerves II, III, IV, and - Pupils are equal and round, reacts briskly to light (from 4 mm to 2 mm). Extraocular movements intact. No nystagmus. Cranial nerve V - Sensation to light touch and pinprick is intact in the bilateral V1 through V3 distributions. Strength of the temporalis and masseter muscles is within normal limits. Cranial nerve VII - The face is symmetric as are all facial movements. Strength is within normal limits. Cranial nerve VIII - Hearing is intact to finger rub bilaterally. Cranial nerve IX, X - The soft palate elevates equally and symmetrically. Cranial nerve XI - Normal strength of the bilateral sternocleidomastoid and trapezius muscles. Cranial nerve XII - The tongue protrudes midline and moves symmetrically from side to side. STRENGTH: Bulk is normal. The left arm is not examined. Strength is 4-/5 in the right deltoid, 5/5 in the right biceps, triceps, wrist flexors and extensors, finger flexors and extensors, and intrinsic hand muscles. Strength is 5/5 in the bilateral hip flexors, knee flexors and extensors, ankle dorsiflexion and plantarflexion, and intrinsic foot muscles. Tone is normal. DTRs: The left arm is not examined. Deep tendon reflexes are 2+ at the right triceps, biceps, brachioradialis, bilateral patellas, and bilateral Achilles'. Plantar responses are flexor bilaterally. SENSATION: Sensation is intact to light touch and pinprick in both arms and both legs. CEREBELLAR: The left arm is not examined. Lzhidj-xlxl-fqzyug and heel-carvajal movements are intact without dysmetria or other impairment. GAIT: Deferred. SPEECH: Spontaneous speech is normal without appreciable dysarthria or aphasia. Repetition is intact. INVOLUNTARY MOVEMENTS: None. PRONATOR DRIFT: As per motor exam. LABORATORY DATA: A complete metabolic panel is significant for hypokalemia with a potassium of 3.0, and a low estimated GFR of 56. B natriuretic peptide 14.6. TSH 0.852. The CBC with differential and platelets reveals an elevated white blood cell count of 13.83 with 79.9% neutrophils, 11.9% lymphocytes, 6.7% monocytes, 0.6% eosinophils, and 0.4% basophils. The hemoglobin and hematocrit are 14.0 and 42.3, respectively. The platelet count is 290,000. PT 13.6, INR 1.13, PTT 25.5. A urinalysis was significant for trace protein, 3+ blood, greater than 50 red blood cells, and 6 to 10 white blood cells. A preliminary urine culture shows no growth at 18 to 24 hours. DIAGNOSTIC STUDIES: 1. Electrocardiogram, February 22, 2018: Normal sinus rhythm at 78 beats per minute. 2. Chest x-ray, February 22, 2018: A. Lines and tubes: None. B. Lungs are grossly clear. No consolidation or effusion. C. Cardiomediastinal silhouette is normal. Pulmonary vasculature is normal. D. No acute bony abnormalities. 3. CT of the cervical spine without contrast, February 22, 2018: No acute cervical spine posttraumatic abnormalities. Acute posttraumatic spinal cord, vascular or ligamentous injuries cannot adequately be assessed by CT. 4. CT of the brain without contrast, February 22, 2018: On my review, there is no evidence of recent large territorial ischemia, hemorrhage, mass, or mass effect. There are no acute facial fractures. 5. CT of the face without contrast, February 22, 2018: Please see above. 6. Echocardiogram, February 23, 2018: Ejection fraction 60% to 65%. Left ventricular hypertrophy. Left atrial enlargement. Right atrial enlargement. Mild mitral regurgitation. 7. Bilateral carotid artery ultrasound with Doppler, February 23, 2018: A. Mild atherosclerotic plaque is present in the bilateral carotid bulbs. B. There is no hemodynamically significant stenosis noted in the carotid system bilaterally. C. The vertebral artery demonstrates antegrade flow bilaterally. ASSESSMENT AND PLAN: Ms. Higgins is a 52-year-old right hand dominant woman with past medical history significant for hypertension, diabetes mellitus type 2, and asthma, admitted to [facility] on February 22, 2018 following 2 syncopal events. At present, her neurological examination is nonfocal, excluding evaluation of the left arm due to impairment status post surgery. The patient's laboratory data and other diagnostic studies have been reviewed and are documented above. In my opinion, there does not appear to be an underlying neurological cause of the patient's symptoms. Further evaluation for a cardiogenic source of the patient's syncopal events is recommended. Thank you for this consultation. There are no recommendations from neurology at this time. Please call again with any questions or concerns. TIME SPENT: 70 minutes. Job#: [id number] DR MASSEY
[2018-02-24] VITALS: BP 132/74
[2018-02-24 04:00] VITALS: BP 120/78
[2018-02-24 05:39] LABS: BASOPHILS # (AUTO) 0.1 (0.0-0.1); BASOPHILS % 0.7 % (0.0-1.0); EOSINOPHILS # (AUTO) 0.2 (0.0-0.4); EOSINOPHILS % 2.1 % (0.0-6.0); HEMATOCRIT 40.6 % (34.2-44.1); HEMOGLOBIN 13.4 g/dL (12.0-16.0); LYMPHOCYTES # (AUTO) 2.8 (1.0-3.2); LYMPHOCYTES % 28.5 % (18.0-39.1); MEAN CORPUSCULAR HEMOGLOBIN 27.9 pg (28-32); MEAN CORPUSCULAR VOLUME 84.4 fL (81-99); MONOCYTES # (AUTO) 0.7 (0.2-0.8); MONOCYTES % 6.7 % (4.4-11.3); NEUTROPHILS % 61.7 % (38.7-80.0); PLATELET COUNT 261 x10e3/uL (140-360); RED BLOOD COUNT 4.81 x10e6/uL (3.6-5.1); RED CELL DISTRIBUTION WIDTH 15.4 % (11.7-14.4)
[2018-02-24 06:01] LABS: ANION GAP 15.8 mmol/L (8-16); BLOOD UREA NITROGEN 10 mg/dL (7-26); BUN/CREATININE RATIO 12 (6-25); CALCIUM 9.5 mg/dL (8.4-10.2); CARBON DIOXIDE 23 mmol/L (22-29); CHLORIDE 101 mmol/L (98-107); CREATININE, SERUM 0.84 mg/dL (0.57-1.11); EST GLOMERULAR FILTRATION RATE > 60 ML/MIN (60-); GLUCOSE 103 mg/dL (74-118); SODIUM 137 mmol/L (136-145)
[2018-02-24 06:04] LABS: POTASSIUM 2.8 mmol/L (3.5-5.1)
[2018-02-24] MEDS: LEVOFLOXACIN 500MG/D5W 100ML 100 ML IV SCH (06:20)
[2018-02-24] MEDS ORDERED: POTASSIUM CHLORIDE 20 MEQ TAB CR PO STA (06:21)
[2018-02-24] MEDS ORDERED: POTASSIUM CHLORIDE 20MEQ/100ML 200 ML IV ONE (06:30)
[2018-02-24 08:00] VITALS: BP 116/71
[2018-02-24] MEDS ORDERED: SODIUM CHLORIDE 0.9% 250ML 250 ML ONE (08:07)
[2018-02-24] MEDS: PLECANATIDE PO SCH (09:00)
[2018-02-24 09:10] VITALS: BP 116/71
[2018-02-24] MEDS: VARENICLINE 1 MG TAB PO SCH (09:10)
[2018-02-24] MEDS: PANTOPRAZOLE SOD 40 MG TABEC PO SCH (09:10)
[2018-02-24] MEDS: PAROXETINE HCL 20 MG TAB PO SCH (09:10)
[2018-02-24] MEDS: TRAMADOL HCL 50 MG TAB PO PRN (09:10)
[2018-02-24] MEDS: HYDROCHLOROTHIAZIDE 25 MG TAB PO SCH (09:10)
[2018-02-24] MEDS: SITAGLIPTIN 100 MG TAB PO SCH (09:10)
[2018-02-24] MEDS: THEOPHYLLINE 200 MG TABCR PO SCH (09:10)
[2018-02-24] MEDS: FUROSEMIDE 20 MG TAB PO SCH (09:10)
[2018-02-24 12:00] VITALS: BP 198/100
[2018-02-24] MEDS ORDERED: LEVAQUIN500 MG PO (12:49)
[2018-02-24] MEDS ORDERED: POTASSIUM CHLO10 ME1 PO (12:50)
[2018-02-24] MEDS ORDERED: POTASSIUM CHLORIDE 20 MEQ TAB CR PO ONE (13:00)
[2018-02-24 13:05] VITALS: BP 160/72
[2018-02-24] MEDS ORDERED: SIMVASTATIN 40 MG TAB PO SCH (21:00)
== END 2018-02-24 13:13 | disposition home or self-care (01) | DRG 312 ==
LOC: ER 14:30 → ERHOLD 16:57 → MED/SURG 18:52
PROVIDERS: ADMIT Family Medicine; ATTEND Family Medicine
DX: I95.1 Orthostatic hypotension (principal); I50.31 Acute diastolic (congestive) heart failure; N39.0 Urinary tract infection, site not specified; R50.9 Fever, unspecified; E11.9 Type 2 diabetes mellitus without complications; E78.5 Hyperlipidemia, unspecified; J44.9 Chronic obstructive pulmonary disease, unspecified; J45.909 Unspecified asthma, uncomplicated; I11.0 Hypertensive heart disease with heart failure; I16.0 Hypertensive urgency; E86.0 Dehydration; Z88.5 Allergy status to narcotic agent; Z88.2 Allergy status to sulfonamides; Z88.8 Allergy status to other drugs, medicaments and biological substances; Z91.048 Other nonmedicinal substance allergy status; W18.39XA Other fall on same level, initial encounter; Y93.89 Activity, other specified; Y92.512 Supermarket, store or market as the place of occurrence of the external cause
CPT/HCPCS: 36415; 70450; 70486; 71045; 72125; 80048; 80053; 81001; 82948; 83880; 84443; 85025; 85610; 85730; 87086; 93005; 93306; 93880; 96367; 97139; 99284; J1956; J3480; J7030; J7050

== ENCOUNTER → 2018-03-07 | Outpatient (CLI) | payer BC ==
[~2018-03-07] MED LIST changes: +CARVEDILOL3.125 MG PO; +IOPAMIDOL 370 MG/ML 200 ML INFUS..BTL INJ ONE; +LEVAQUIN500 MG PO; +MELOXICAM7.5 MG PO; +NUCYNTA50 MG PO; +POTASSIUM CHLO10 ME1 PO; +SODIUM CHLORIDE 0.9% 50ML 50 ML ONE; +TRULANCE PO; +ULTRAM50 MG PO
--- NOTE | 2018-03-07 11:26 | Diagnostic Imaging Report ---
PROCEDURE: CT scan of the chest WITH intravenous contrast, using pulmonary embolism protocol TECHNIQUE: The chest was scanned utilizing a multidetector helical scanner from the lung apex through the level of the adrenal glands after the IV administration of 64 cc of Isovue 370. CT pulmonary embolism protocol was performed. Coronal and sagittal multiplanar reformations were obtained. COMPARISON: CT Chest 08/06/17. INDICATIONS: CHEST PAIN FINDINGS: Pulmonary arteries: The main pulmonary artery measures at the upper limits of normal at 3 cm. No evidence of pulmonary embolism. Lines/tubes: None. Lungs and Airways: Scattered dependent atelectasis. The lungs and airways are otherwise normal with no focal abnormality demonstrated. Pleura: The pleural spaces are clear. Heart and mediastinum: The thyroid gland is normal. No significant mediastinal, hilar or axillary lymphadenopathy is seen. Coronary atherosclerosis. Atherosclerotic calcifications of the thoracic aorta and great vessels. Mitral annular calcifications. No pericardial effusion. Soft tissues: Right sided breast implant. Abdomen: Limited contrast-enhanced views of the upper abdomen show no abnormality within the visualized liver, spleen, pancreas, or kidneys. Status post cholecystectomy. The adrenal glands are normal. Bones: No acute bony findings. IMPRESSION: No evidence of pulmonary embolism or other acute findings in the thorax. Coronary and aortic atherosclerosis. Dictated by: PAOLA CRANDALL M.D. on 03/07/2018 at 11:32 Electronically approved by: PAOLA CRANDALL M.D. on 03/07/2018 at 11:32
== END ==
LOC: CT 10:21
PROVIDERS: ATTEND Internal Medicine
DX: R06.02 Shortness of breath (principal)
CPT/HCPCS: 71260; Q9967

== ENCOUNTER → 2018-03-08 | Day surgery (SDC) | payer BC ==
[2018-03-07 11:57] LABS: BASOPHILS % 0.1 % (0.0-1.0); HEMATOCRIT 42.9 % (34.2-44.1); HEMOGLOBIN 14.1 g/dL (12.0-16.0); LYMPHOCYTES # (AUTO) 1.2 (1.0-3.2); LYMPHOCYTES % 5.5 % (18.0-39.1); MEAN CORPUSCULAR HEMOGLOBIN 28.4 pg (28-32); MEAN CORPUSCULAR HGB CONC 32.9 g/dL (31-35); MEAN CORPUSCULAR VOLUME 86.5 fL (81-99); MONOCYTES # (AUTO) 0.3 (0.2-0.8); MONOCYTES % 1.2 % (4.4-11.3); NEUTROPHILS # (AUTO) 20.8 (2.1-6.9); NEUTROPHILS % 92.6 % (38.7-80.0); PLATELET COUNT 328 x10e3/uL (140-360); RED BLOOD COUNT 4.96 x10e6/uL (3.6-5.1); RED CELL DISTRIBUTION WIDTH 15.5 % (11.7-14.4)
[2018-03-07 12:08] LABS: INR 1.05; PROTHROMBIN TIME 12.9 seconds (11.9-14.5)
[2018-03-07 12:15] LABS: ALANINE AMINOTRANSFERASE 30 IU/L (0-55); ALBUMIN 3.7 g/dL (3.5-5.0); ALKALINE PHOSPHATASE 81 IU/L (40-150); ANION GAP 17.1 mmol/L (8-16); BLOOD UREA NITROGEN 13 mg/dL (7-26); BUN/CREATININE RATIO 14 (6-25); CALCIUM 9.9 mg/dL (8.4-10.2); CARBON DIOXIDE 20 mmol/L (22-29); CHLORIDE 105 mmol/L (98-107); CREATININE, SERUM 0.93 mg/dL (0.57-1.11); EST GLOMERULAR FILTRATION RATE > 60 ML/MIN (60-); GLUCOSE 132 mg/dL (74-118); POTASSIUM 4.1 mmol/L (3.5-5.1); SODIUM 138 mmol/L (136-145)
[~2018-03-08] VITALS: Ht 162.6 cm; Wt 76.7 kg
[~2018-03-08] MED LIST changes: +FENTANYL CITRATE/PF 100MCG/2 ML INJ ONE; -IOPAMIDOL 370 MG/ML 200 ML INFUS..BTL INJ ONE; +LIDOCAINE HCL 2% LOCAL INJ 5 ML SDV VIAL INJ ONE; +MIDAZOLAM HCL 2 MG/2 ML VIAL ONE; +PROPOFOL IV EMULSION 10 MG/ML 50 ML VIAL ONE; -SODIUM CHLORIDE 0.9% 50ML 50 ML ONE
[2018-03-08 07:47] VITALS: BP 126/89
== END | disposition home or self-care (01) ==
LOC: CATH LAB 07:23
PROVIDERS: ATTEND Internal Medicine
DX: I05.2 Rheumatic mitral stenosis with insufficiency (principal); I10 Essential (primary) hypertension; E78.5 Hyperlipidemia, unspecified; E11.9 Type 2 diabetes mellitus without complications; J45.909 Unspecified asthma, uncomplicated; D64.9 Anemia, unspecified; K21.9 Gastro-esophageal reflux disease without esophagitis; G89.29 Other chronic pain; Z88.5 Allergy status to narcotic agent; Z88.2 Allergy status to sulfonamides; Z88.8 Allergy status to other drugs, medicaments and biological substances; Z91.048 Other nonmedicinal substance allergy status; Z88.6 Allergy status to analgesic agent; Z88.1 Allergy status to other antibiotic agents; Z91.041 Radiographic dye allergy status; Z79.84 Long term (current) use of oral hypoglycemic drugs; Z83.3 Family history of diabetes mellitus; Z82.49 Family history of ischemic heart disease and other diseases of the circulatory system
CPT/HCPCS: 36415 ×2; 80053; 82948; 85025; 85610; 93312; 93320; 93325; J2001; J2250

== ENCOUNTER → 2018-05-01 | Day surgery (SDC) | payer BC ==
[~2018-05-01] VITALS: Ht 162.6 cm; Wt 76.7 kg
[~2018-05-01] MED LIST changes: -FENTANYL CITRATE/PF 100MCG/2 ML INJ ONE; +LIDOCAINE 1% W/EPINEPHRINE 20 ML VIAL ONE; -LIDOCAINE HCL 2% LOCAL INJ 5 ML SDV VIAL INJ ONE; -MIDAZOLAM HCL 2 MG/2 ML VIAL ONE; -PROPOFOL IV EMULSION 10 MG/ML 50 ML VIAL ONE
--- NOTE | 2018-05-01 08:56 | Operative Report ---
DATE OF PROCEDURE: May 01, 2018 INDICATIONS: Palpitations and history of atrial fibrillation. PROCEDURE PERFORMED: Insertable loop recorder. The left anterior chest wall was anesthetized using subcutaneous lidocaine. A Yogiyo LINQ, serial number [id number], was inserted subcutaneously without complications. Skin approximated using Dermabond. Patient discharged home same day. BLOOD LOSS: 1 mL. RECOMMENDATIONS: Remote monitoring. Job#: [id number] RI
== END | disposition home or self-care (01) ==
LOC: CATH LAB 06:26
PROVIDERS: ATTEND Internal Medicine Interventional Cardiology
DX: I48.91 Unspecified atrial fibrillation (principal); I34.0 Nonrheumatic mitral (valve) insufficiency; J45.909 Unspecified asthma, uncomplicated; E13.8 Other specified diabetes mellitus with unspecified complications; I10 Essential (primary) hypertension; Z88.8 Allergy status to other drugs, medicaments and biological substances; Z88.6 Allergy status to analgesic agent; Z88.1 Allergy status to other antibiotic agents; Z88.3 Allergy status to other anti-infective agents; Z91.041 Radiographic dye allergy status; Z79.84 Long term (current) use of oral hypoglycemic drugs; Z82.49 Family history of ischemic heart disease and other diseases of the circulatory system
CPT/HCPCS: 33282; C1764

== ENCOUNTER → 2018-07-17 | Outpatient (CLI) | payer BC ==
[~2018-07-17] MED LIST changes: -LIDOCAINE 1% W/EPINEPHRINE 20 ML VIAL ONE
--- NOTE | 2018-07-17 09:19 | Diagnostic Imaging Report ---
Left knee MRI without contrast. History: Knee pain. Internal drainage. Fall. Swelling. Comparison: None. Technique: Multiplanar multi-sequence MRI of the knee without contrast. Findings: Medial compartment: There is a nondisplaced obliquely oriented undersurface tear at the posterior horn of the medial meniscus best seen on coronal series 5 image 14. There is a mild sprain of the medial collateral ligament. The majority of the fibers are intact. The medial compartmental articular cartilage surfaces are intact. Lateral compartment: No meniscal tear or cartilage abnormality. The LCL complex is normal. Intercondylar notch: The ACL and PCL are intact. Patellofemoral compartment: No chondromalacia or patellar dislocation. Extensor mechanism: The quadriceps and patellar tendons are normal. Other findings: There is a joint effusion and synovitis. There is no acute fracture, subluxation or avascular necrosis. There is a lobulated septated De La Paz's cyst. IMPRESSION: Nondisplaced obliquely oriented undersurface tear at the posterior horn of the medial meniscus. Mild sprain of the medial collateral ligament. The majority of the fibers are intact. Joint effusion, synovitis and lobulated septated De La Paz's cyst. Signed by: Dr. Isrrael Johnson M.D. on 07/17/2018 9:16 AM
== END ==
LOC: MRI 07:35
PROVIDERS: ATTEND Specialist
DX: M23.92 Unspecified internal derangement of left knee (principal)

== ENCOUNTER → 2018-07-30 | Day surgery (SDC) | payer BC ==
[2018-07-26 10:02] LABS: BASOPHILS # (AUTO) 0.1 (0.0-0.1); BASOPHILS % 0.6 % (0.0-1.0); EOSINOPHILS # (AUTO) 0.2 (0.0-0.4); EOSINOPHILS % 1.4 % (0.0-6.0); HEMOGLOBIN 14.2 g/dL (12.0-16.0); LYMPHOCYTES # (AUTO) 2.9 (1.0-3.2); MEAN CORPUSCULAR HEMOGLOBIN 27.4 pg (28-32); MONOCYTES # (AUTO) 0.8 (0.2-0.8); MONOCYTES % 6.8 % (4.4-11.3); NEUTROPHILS # (AUTO) 7.1 (2.1-6.9); NEUTROPHILS % 64.8 % (38.7-80.0); PLATELET COUNT 317 x10e3/uL (140-360); RED BLOOD COUNT 5.18 x10e6/uL (3.6-5.1); RED CELL DISTRIBUTION WIDTH 16.2 % (11.7-14.4)
[2018-07-26 10:17] LABS: ANION GAP 12.8 mmol/L (8-16); BLOOD UREA NITROGEN 13 mg/dL (7-26); BUN/CREATININE RATIO 14 (6-25); CALCIUM 9.8 mg/dL (8.4-10.2); CARBON DIOXIDE 22 mmol/L (22-29); CHLORIDE 102 mmol/L (98-107); CREATININE, SERUM 0.92 mg/dL (0.57-1.11); EST GLOMERULAR FILTRATION RATE > 60 ML/MIN (60-); GLUCOSE 102 mg/dL (74-118); POTASSIUM 3.8 mmol/L (3.5-5.1); SODIUM 133 mmol/L (136-145)
[~2018-07-30] MED LIST changes: +ACETAMINOPHEN 1000 MG/100 ML IV ONE; +CARDIZEM60 MG PO; +CEFTRIAXONE SOD 1 GM/NS 50 ML 50 ML IV ONE; +DEXAMETHASONE SOD PHOS INJ 4 MG/ML VIAL ONE; +EPHEDRINE SULFATE INJ 50 MG/10 ML SYR ONE; +FENTANYL CITRATE/PF 100MCG/2 ML INJ ONE; +GLYCOPYRROLATE INJ 1MG/ 5 ML SYR ONE; +LIDOCAINE HCL 2% LOCAL INJ 5 ML SDV VIAL INJ ONE; +MIDAZOLAM HCL 2 MG/2 ML VIAL ONE; +PROPOFOL IV EMULSION 10 MG/ML 20 ML VIAL ONE; +SCOPOLAMINE 1.5 MG PATCH ONE; +SEVOFLURANE INHAL SOLN 250 ML PEN BTL ONE; +TRAMADOL HCL 50 MG TAB ONE
[2018-07-30 10:22] VITALS: BP 141/87
--- NOTE | 2018-07-30 11:41 | Operative Report ---
DATE OF PROCEDURE: July 30, 2018 DINING ROOM HOSTESS: Stan Carey PA-C The patient was brought to the operating room for induction of anesthesia. Throughout this case, my PA's assistance was necessary for retraction of soft tissue and positioning of the extremity. This allows for efficient and technically successful execution of the operation and is considered medically necessary. PREOPERATIVE DIAGNOSIS: Medial meniscal tear, left knee. POSTOPERATIVE DIAGNOSES 1. Medial meniscal tear, left knee. 2. 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 PROCEDURES 1. Left knee arthroscopy. 2. Partial medial meniscectomy. 3. Chondroplasty of the medial tibial plateau. INDICATIONS: The patient is a 52-year-old lady who has left knee pain. Clinic exam and MRI findings are consistent with a tear of the medial meniscus. The findings and options have been discussed. She has failed conservative management and would like to proceed with arthroscopy. She had arthroscopy on her right side that helped. She understands the risks and benefits. She wishes to proceed. DESCRIPTION OF PROCEDURE: The patient was brought to the operating room and placed under general anesthetic. Her left lower extremity was prepped and draped in a sterile manner. A preoperative time out was performed. The extremity had been exsanguinated, and a proximal tourniquet was briefly inflated to 300 mmHg. Standard arthroscopy portals were established. The knee was insufflated with sterile saline and systematically inspected. She was noted to have a well-preserved patellofemoral groove. The medial and lateral gutters were unremarkable. There was minimal synovitis. The cruciate ligaments were intact and stable. The lateral compartment was pristine. There was grade-2 chondromalacia of the weightbearing surface of the medial tibial plateau. There was a horizontal tear of the posterior horn of the medial meniscus. A combination of biting forceps and a mechanical shaver were used to debride the medial meniscus back to a stable margin. Gentle chondroplasty was performed on the medial tibial plateau. All unstable fragments of cartilage were removed. The knee was thoroughly irrigated. The arthroscopic instruments were removed, and the portal incisions were closed with nylon stitches. A sterile bandage was applied. The patient was extubated and transported to the recovery room in stable condition. There was no blood loss, and all needle and sponge counts were correct. Job#: [id number] MAR
== END | disposition home or self-care (01) ==
LOC: OR 05:35
PROVIDERS: ATTEND Specialist
DX: S83.242A Other tear of medial meniscus, current injury, left knee, initial encounter (principal); M94.262 Chondromalacia, left knee; I10 Essential (primary) hypertension; J45.909 Unspecified asthma, uncomplicated; K21.9 Gastro-esophageal reflux disease without esophagitis; K44.9 Diaphragmatic hernia without obstruction or gangrene; I05.0 Rheumatic mitral stenosis; K58.9 Irritable bowel syndrome, unspecified; E11.9 Type 2 diabetes mellitus without complications; Z79.84 Long term (current) use of oral hypoglycemic drugs; Z01.810 Encounter for preprocedural cardiovascular examination; Z01.812 Encounter for preprocedural laboratory examination; Z85.89 Personal history of malignant neoplasm of other organs and systems
CPT/HCPCS: 29881; 36415 ×2; 80048; 82948; 85025; 93005; J0131; J0696; J1100; J2001; J2250; J2704; J3490

== ENCOUNTER → 2019-04-11 | Outpatient (CLI) | payer BC ==
[~2019-04-11] MED LIST changes: -ACETAMINOPHEN 1000 MG/100 ML IV ONE; +CARTIA XT120 MG PO; -CEFTRIAXONE SOD 1 GM/NS 50 ML 50 ML IV ONE; -DEXAMETHASONE SOD PHOS INJ 4 MG/ML VIAL ONE; -EPHEDRINE SULFATE INJ 50 MG/10 ML SYR ONE; -FENTANYL CITRATE/PF 100MCG/2 ML INJ ONE; -GLYCOPYRROLATE INJ 1MG/ 5 ML SYR ONE; -LIDOCAINE HCL 2% LOCAL INJ 5 ML SDV VIAL INJ ONE; -MIDAZOLAM HCL 2 MG/2 ML VIAL ONE; -PROPOFOL IV EMULSION 10 MG/ML 20 ML VIAL ONE; -SCOPOLAMINE 1.5 MG PATCH ONE; -SEVOFLURANE INHAL SOLN 250 ML PEN BTL ONE; -TRAMADOL HCL 50 MG TAB ONE; +vitamin B12 PO
[2019-04-11 12:25] LABS: BASOPHILS # (AUTO) 0.1 (0.0-0.1); BASOPHILS % 0.6 % (0.0-1.0); EOSINOPHILS # (AUTO) 0.1 (0.0-0.4); EOSINOPHILS % 1.1 % (0.0-6.0); HEMATOCRIT 44.1 % (34.2-44.1); HEMOGLOBIN 14.8 g/dL (12.0-16.0); LYMPHOCYTES # (AUTO) 2.7 (1.0-3.2); LYMPHOCYTES % 24.6 % (18.0-39.1); MEAN CORPUSCULAR HEMOGLOBIN 27.5 pg (28-32); MEAN CORPUSCULAR HGB CONC 33.6 g/dL (31-35); MEAN CORPUSCULAR VOLUME 81.8 fL (81-99); MONOCYTES # (AUTO) 0.7 (0.2-0.8); MONOCYTES % 6.7 % (4.4-11.3); NEUTROPHILS # (AUTO) 7.2 (2.1-6.9); NEUTROPHILS % 66.7 % (38.7-80.0); PLATELET COUNT 292 x10e3/uL (140-360); RED BLOOD COUNT 5.39 x10e6/uL (3.6-5.1); RED CELL DISTRIBUTION WIDTH 15.7 % (11.7-14.4)
[2019-04-11 12:51] LABS: ALBUMIN 3.8 g/dL (3.5-5.0); ANION GAP 14.4 mmol/L (8-16); CHOL/HDL RATIO 8.4 (3.0-3.6); CREATININE, SERUM 1.05 mg/dL (0.57-1.11); POTASSIUM 3.4 mmol/L (3.5-5.1)
[2019-04-11 13:12] LABS: FREE THYROXINE INDEX 2.1491 (1.4-3.8); THYROID STIMULATING HORMONE 0.478 uIU/mL (0.350-4.940)
== END ==
LOC: RAD 11:59
PROVIDERS: ATTEND Family Medicine
DX: E11.65 Type 2 diabetes mellitus with hyperglycemia (principal); E78.5 Hyperlipidemia, unspecified; Z01.818 Encounter for other preprocedural examination; Z79.899 Other long term (current) drug therapy
CPT/HCPCS: 36415; 80053; 80061; 83036; 84436; 84443; 84479; 85025

== ENCOUNTER → 2019-04-16 | Day surgery (SDC) | payer BC, MEDICARE ==
[~2019-04-16] MED LIST changes: +ACETAMINOPHEN 1000 MG/100 ML IV ONE; +BUPIVACAINE HCL 0.5% INJ 30 ML VIAL INJ ONE; +DEXAMETHASONE SOD PHOS INJ 4 MG/ML VIAL ONE; +FENTANYL CITRATE/PF 100MCG/2 ML INJ ONE; +LIDOCAINE HCL 2% LOCAL INJ 5 ML SDV VIAL INJ ONE; +MIDAZOLAM HCL 2 MG/2 ML VIAL ONE; +MUPIROCIN 2% OINT 22 GM TUBE ONE; +ONDANSETRON HCL INJ 2MG/ML 2ML 2 MG/ML VIAL ONE; +PROMETHAZINE HCL (IM) 25 MG/ML VIAL ONE; +PROPOFOL IV EMULSION 10 MG/ML 20 ML VIAL ONE; +SEVOFLURANE INHAL SOLN 250 ML PEN BTL ONE; +TRAMADOL HCL 50 MG TAB ONE
[2019-04-16 08:10] VITALS: BP 119/90
--- NOTE | 2019-04-16 15:21 | Operative Report ---
DATE OF PROCEDURE: 04/16/2019 SURGEON: Anders Malik MD PREOPERATIVE DIAGNOSIS: Stenosing tenosynovitis of right long finger and the right ring finger. POSTOPERATIVE DIAGNOSIS: Stenosing tenosynovitis of right long finger and the right ring finger. OPERATION PERFORMED: Tenovaginotomy of right long finger and the right ring finger. ANESTHESIA: General. HISTORY: The patient is a 53-year-old right hand-dominant female, who presents with stenosing tenosynovitis of the right long finger and the right ring finger that is recalcitrant to conservative treatment. The risks, benefits, and alternatives of treatment were discussed with the patient and they are prepared to undergo the procedure as outlined. DESCRIPTION OF PROCEDURE: The patient was brought to the operating theater. After the induction of adequate general anesthesia, the patient was prepped and draped in a supine position. A time out was performed by the entire operating room team. An oblique incision was marked out over the A1 robert of the right long finger and right ring finger. The upper extremity was exsanguinated, and a tourniquet was inflated to a pressure of 250 mmHg. The incision was made through the skin and subcutaneous tissues. All venous tributaries were controlled with bipolar cautery. The incision was deepened through the palmar tissues. The neurovascular bundles on the radial and ulnar sides of the flexor tendon sheath were identified and retracted away from the flexor tendon sheath and preserved. The A1 robert of the affected finger was identified and incised longitudinally, taking care to protect and preserve the flexor tendons within the sheath. After the complete length of the robert had been transected, the tendons were placed in a range of motion. There was noted to be good motion without any locking. The wound was then copiously irrigated with bacteriostatic saline and closed with 5-0 nylon in an interrupted horizontal mattress fashion. A Marcaine field block was performed at the operative site. The tourniquet was deflated. All the fingers pinked up nicely. A sterile bulky conforming bandage was applied to the hand, and the patient was returned to the recovery room in satisfactory condition and was discharged with a postoperative instruction sheet as well as a followup appointment. Anders Malik MD ER/MODL /[id number]
== END | disposition home or self-care (01) ==
LOC: OR 05:25
PROVIDERS: ATTEND Plastic Surgery
DX: M65.331 Trigger finger, right middle finger (principal); M65.341 Trigger finger, right ring finger; I10 Essential (primary) hypertension; E11.9 Type 2 diabetes mellitus without complications; J45.909 Unspecified asthma, uncomplicated
CPT/HCPCS: 26055 ×2; 36415; 82948; J0131; J1100; J2001; J2250; J2405; J2550; J2704; J3010

== ENCOUNTER → 2020-05-08 | Day surgery (SDC) | payer BC, MEDICARE, OTHER ==
[2020-05-04 10:45] LABS: BASOPHILS # (AUTO) 0.1 (0.0-0.1); BASOPHILS % 0.6 % (0.0-1.0); EOSINOPHILS # (AUTO) 0.2 (0.0-0.4); EOSINOPHILS % 1.4 % (0.0-6.0); HEMATOCRIT 42.2 % (34.2-44.1); LYMPHOCYTES # (AUTO) 3.6 (1.0-3.2); LYMPHOCYTES % 31.6 % (18.0-39.1); MEAN CORPUSCULAR HEMOGLOBIN 28.2 pg (28-32); MEAN CORPUSCULAR HGB CONC 33.2 g/dL (31-35); MEAN CORPUSCULAR VOLUME 85.1 fL (81-99); MONOCYTES # (AUTO) 0.7 (0.2-0.8); NEUTROPHILS # (AUTO) 6.9 (2.1-6.9); NEUTROPHILS % 60.1 % (38.7-80.0); PLATELET COUNT 256 x10e3/uL (140-360); RED BLOOD COUNT 4.96 x10e6/uL (3.6-5.1); RED CELL DISTRIBUTION WIDTH 14.5 % (11.7-14.4)
[2020-05-04 11:12] LABS: ALBUMIN 3.7 g/dL (3.5-5.0); ALBUMIN/GLOBULIN RATIO 1.2 (0.8-2.0); ANION GAP 15.7 mmol/L (8-16); CALCIUM 9.1 mg/dL (8.4-10.2); CREATININE, SERUM 0.97 mg/dL (0.57-1.11); POTASSIUM 3.7 mmol/L (3.5-5.1)
[~2020-05-08] VITALS: Ht 162.6 cm; Wt 77.1 kg
[2020-05-08] VITALS (12 sets, daily range): BP systolic 106–132; BP diastolic 68–80
[~2020-05-08] MED LIST changes: -ACETAMINOPHEN 1000 MG/100 ML IV ONE; +ALPRAZOLAM 0.5 MG TAB ONE; +ASPIRIN 325 MG TAB ONE; +ASPIRIN EC81 MG PO; +BENADRYL25 M1 PO; +BIVALRIUDIN 250 MG/VIAL VIAL IV ONE; -BUPIVACAINE HCL 0.5% INJ 30 ML VIAL INJ ONE; -DEXAMETHASONE SOD PHOS INJ 4 MG/ML VIAL ONE; +DIPHENHYDRAMINE HCL 25 MG CAP ONE; +FAMOTIDINE 20 MG/2 ML VIAL IV ONE; +FAMOTIDINE20 MG PO; +IOPAMIDOL 370 MG/ML 200 ML INFUS..BTL INJ ONE; +LEVOCETIRIZINE D5 MG PO; +LIDOCAINE HCL 2% LOCAL 20 ML VIAL ONE; -LIDOCAINE HCL 2% LOCAL INJ 5 ML SDV VIAL INJ ONE; +LOSARTAN POTASS25 MG PO; +METHYLPREDNISOLONE SOD SUCC 125 MG/2ML VIAL ONE; -MUPIROCIN 2% OINT 22 GM TUBE ONE; -ONDANSETRON HCL INJ 2MG/ML 2ML 2 MG/ML VIAL ONE; +PRASUGREL 10 MG TAB ONE; +PREDNISONE 20 MG TAB ONE; +PREDNISONE20 MG PO; -PROMETHAZINE HCL (IM) 25 MG/ML VIAL ONE; -PROPOFOL IV EMULSION 10 MG/ML 20 ML VIAL ONE; -SEVOFLURANE INHAL SOLN 250 ML PEN BTL ONE; +SODIUM CHLORIDE 0.9% 1000ML 1,000 ML ONE; +SODIUM CHLORIDE 0.9% 50ML 50 ML ONE; -TRAMADOL HCL 50 MG TAB ONE; +VERAPAMIL HCL 2.5 MG/ML 2 ML VIAL ONE
--- NOTE | 2020-05-08 13:00 | NUR ---
pt in CCL 10 , prepped for procedure. Alert oriented and appropriate, PERRLA, respirations even and unlabored to room air. Pulses x4 extremities equal and palpable . Cap fill brisk < 3 sec. + modified barbeau and neurovascular function of right wrist/hand. Right wrist and bilateral groin prepped for procedure. skin intact. Skin warm and dry integrity appears intact in general. IV 20g to left arm x1 and presents healthy w/o s/s of infiltration or complaint. Abdomen soft and supple. pt toileted prior to room. Personal affects with patient. Family to be called post procedure . Pt verbalizes understanding of POC. Educated documentation consultant light use. bed low and locked, side rails up x2 and call light at side. premeds for multiple allergies given. Awaiting for physician arrival/procedure time. pt using provided/ personal mask for COVID-19 mitigation. -cgf
--- NOTE | 2020-05-08 14:50 | NUR ---
bedside report received from Israel Terrazas RN. drowsy, easily aroused to Alert oriented and appropriate, PERRLA, respirations even and unlabored to room air. Pulses x4 extremities equal and strong. Right hand + neurovascular function Cap fill brisk < 3 sec. TR band present w/ reported 14ml to band. No s/s of hematoma or gross abnormality Skin warm and dry integrity appears intact. IV to left forearm presents healthy w/o s/s of infiltration or complaint. Angiomax infusing by pump. ete. Abdomen soft and supple. pt offered toileting, denies need to urinate or defecate. Personal affects with patient. Family not available. Pt understanding of POC and quickly back to rest. Bedside telemetry/monitoring initiated. Currently w/o complaint of pain or need. Call light within reach, bed low and locked, side rails up x2. pt using provided/ personal mask for COVID-19 mitigation. -cgf
--- NOTE | 2020-05-08 19:35 | NUR ---
Pt meets discharge criteria. VS wnl, alert and oriented. Pt Understands discharge instruction. Overall general assess w/o gross outliers. Skin warm, dry, and intact. Right radial dressing soft w/o s/s of hematoma. + neurovascular function of right hand present. IV removed and appears distal tip is intact. Dr Hudson contacted with pt pharmacy number [phone] for prescription Pt maintains mask on for COVID 19 precautions being taken by wheel chair to awaiting car. Transfers w/o gross distress with discharge paperwork in hand.-cgf
--- NOTE | 2020-05-26 11:22 | Operative Report ---
DATE OF PROCEDURE: 05/08/2020 SURGEON: Roger Hudson MD INDICATIONS: Coronary artery disease, angina, abnormal stress test. PROCEDURES PERFORMED: 1. Ultrasound-guided access in the right radial artery with sheath placement. 2. Conscious sedation, 65 minutes. 3. Left heart catheterization, selective coronary angiography. 4. Stent placement to the mid circumflex coronary artery. 5. Deployment of right wrist TR band. COMPLICATIONS: None. RECOMMENDATIONS: Aggressive medical therapy. DESCRIPTION OF PROCEDURE: Access was obtained in the right radial artery using ultrasound guidance. A 6-Divehi sheath was placed. The patient received intravenous Angiomax, oral prasugrel, and aspirin for anticoagulation. Right coronary artery is completely occluded. Grade 2 collaterals filled the right posterior descending artery from the left coronary system. Left anterior descending artery calcified, proximal 50% stenosis. Apical left anterior descending artery, 2 mm vessel with 90% stenosis. Circumflex, mid 90% stenosis. A decision was made to intervene on the circumflex artery. The patient received intravenous Angiomax, oral prasugrel, and aspirin for anticoagulation. The left main was cannulated using an XB3.5, 6-Divehi guiding catheter. Short Runthrough wire was advanced for support. A single 2.0 x 12 mm Resolute stent was deployed at 16 atmospheres. Excellent end result, less than 10% residual stenosis, OMKAR-3 flow. No complications. Wire and guide sheath removed. TR band applied. The patient discharged home the same day. Roger Hudson MD KSB/MODL /[id number]
== END | disposition home or self-care (01) ==
LOC: CATH LAB 12:08
PROVIDERS: ATTEND Internal Medicine Interventional Cardiology
DX: I25.118 Atherosclerotic heart disease of native coronary artery with other forms of angina pectoris (principal); I47.1 Supraventricular tachycardia; I10 Essential (primary) hypertension; E78.5 Hyperlipidemia, unspecified; J45.909 Unspecified asthma, uncomplicated; E13.8 Other specified diabetes mellitus with unspecified complications; Z88.2 Allergy status to sulfonamides; Z88.8 Allergy status to other drugs, medicaments and biological substances; Z88.6 Allergy status to analgesic agent; Z88.1 Allergy status to other antibiotic agents; Z91.041 Radiographic dye allergy status; Z01.812 Encounter for preprocedural laboratory examination; Z20.828 Contact with and (suspected) exposure to other viral communicable diseases; Z79.82 Long term (current) use of aspirin; Z79.84 Long term (current) use of oral hypoglycemic drugs; Z95.818 Presence of other cardiac implants and grafts; Z82.49 Family history of ischemic heart disease and other diseases of the circulatory system
CPT/HCPCS: 36415; 76937; 80053; 85025; 92928; 93454; C1769; C1876 ×2; C1887; J0583; J2001; J2250; J2930; J3010; J7030; J7512; Q9967; U0002; 99152; 99153

== ENCOUNTER → 2020-07-14 | Outpatient (CLI) | payer MEDICARE, OTHER ==
[~2020-07-14] MED LIST changes: -ALPRAZOLAM 0.5 MG TAB ONE; -ASPIRIN 325 MG TAB ONE; -BIVALRIUDIN 250 MG/VIAL VIAL IV ONE; +COVID-19 VACC, MRNA(MODERNA)/PF 100 MCG/0.5 ML VIAL IM ONE; -DIPHENHYDRAMINE HCL 25 MG CAP ONE; -FAMOTIDINE 20 MG/2 ML VIAL IV ONE; -FENTANYL CITRATE/PF 100MCG/2 ML INJ ONE; -IOPAMIDOL 370 MG/ML 200 ML INFUS..BTL INJ ONE; -LIDOCAINE HCL 2% LOCAL 20 ML VIAL ONE; -METHYLPREDNISOLONE SOD SUCC 125 MG/2ML VIAL ONE; -MIDAZOLAM HCL 2 MG/2 ML VIAL ONE; -PRASUGREL 10 MG TAB ONE; -PREDNISONE 20 MG TAB ONE; -SODIUM CHLORIDE 0.9% 1000ML 1,000 ML ONE; -SODIUM CHLORIDE 0.9% 50ML 50 ML ONE; -VERAPAMIL HCL 2.5 MG/ML 2 ML VIAL ONE
== END ==
LOC: VACCPMC 08:00
DX: Z23 Encounter for immunization (principal); Z20.822 Contact with and (suspected) exposure to COVID-19

== ENCOUNTER → 2020-08-17 | Outpatient (CLI) | payer OTHER | END | DRG 951 | LOC: VACCPMC 07:49 | DX: Z23 Encounter for immunization (principal); Z20.822 Contact with and (suspected) exposure to COVID-19 | CPT/HCPCS: 0012A; 91301 ==

== ENCOUNTER → 2020-12-24 | Day surgery (SDC) | payer MEDICARE, OTHER ==
[~2020-12-24] MED LIST changes: +BUPIVACAINE HCL 0.5% INJ 30 ML VIAL INJ ONE; +CLOPIDOGREL75 MG PO; -COVID-19 VACC, MRNA(MODERNA)/PF 100 MCG/0.5 ML VIAL IM ONE; +DEXAMETHASONE SOD PHOS INJ 4 MG/ML VIAL ONE; +FENTANYL CITRATE/PF 100MCG/2 ML INJ ONE; +HYDROMORPHONE 1MG/1ML INJ ONE; +LEVOFLOXACIN 500MG/D5W 100ML 100 ML IV ONE; +LIDOCAINE HCL 2% LOCAL INJ 5 ML SDV VIAL INJ ONE; +MIDAZOLAM HCL 2 MG/2 ML VIAL ONE; +MUPIROCIN 2% OINT 22 GM TUBE ONE; +ONDANSETRON HCL INJ 2MG/ML 2ML 2 MG/ML VIAL ONE; +OZEMPIC0.25 MG/0. SC; +POVIDONE IODINE 0.05% 0.05 % ML PO ONE; +PROMETHAZINE HCL (IM) 25 MG/ML VIAL IM ONE; +PROPOFOL IV EMULSION 10 MG/ML 20 ML VIAL ONE; +SEVOFLURANE INHAL SOLN 250 ML PEN BTL ONE; +ZETIA10 MG PO
[2020-12-24 08:50] VITALS: BP 117/78
== END | disposition home or self-care (01) ==
LOC: OR 06:22
PROVIDERS: ATTEND Plastic Surgery
DX: N61.1 Abscess of the breast and nipple (principal); T82.7XXA Infection and inflammatory reaction due to other cardiac and vascular devices, implants and grafts, initial encounter; I10 Essential (primary) hypertension; I25.118 Atherosclerotic heart disease of native coronary artery with other forms of angina pectoris; J45.20 Mild intermittent asthma, uncomplicated; E78.00 Pure hypercholesterolemia, unspecified; E11.8 Type 2 diabetes mellitus with unspecified complications; K58.9 Irritable bowel syndrome, unspecified; F17.210 Nicotine dependence, cigarettes, uncomplicated; Y83.8 Other surgical procedures as the cause of abnormal reaction of the patient, or of later complication, without mention of misadventure at the time of the procedure; Z88.6 Allergy status to analgesic agent; Z88.1 Allergy status to other antibiotic agents; Z91.041 Radiographic dye allergy status; Z88.2 Allergy status to sulfonamides; Z88.8 Allergy status to other drugs, medicaments and biological substances; Z91.048 Other nonmedicinal substance allergy status; Z79.02 Long term (current) use of antithrombotics/antiplatelets; Z79.82 Long term (current) use of aspirin; Z98.61 Coronary angioplasty status
CPT/HCPCS: 19120; 36415; 82948; 87071; 87075; 87205; 88300; 88304; J1100; J1170; J1956; J2001; J2250; J2405; J2550; J2704; J3010

== ENCOUNTER → 2021-02-12 | Day surgery (SDC) | payer OTHER, MEDICARE ==
[2021-02-11 09:02] LABS: BASOPHILS # (AUTO) 0.1 (0.0-0.1); BASOPHILS % 0.5 % (0.0-1.0); EOSINOPHILS # (AUTO) 0.1 (0.0-0.4); EOSINOPHILS % 0.6 % (0.0-6.0); HEMATOCRIT 41.6 % (34.2-44.1); HEMOGLOBIN 13.4 g/dL (12.0-16.0); LYMPHOCYTES # (AUTO) 5.9 (1.0-3.2); LYMPHOCYTES % 30.7 % (18.0-39.1); MEAN CORPUSCULAR HEMOGLOBIN 27.5 pg (28-32); MEAN CORPUSCULAR HGB CONC 32.2 g/dL (31-35); MEAN CORPUSCULAR VOLUME 85.2 fL (81-99); MONOCYTES # (AUTO) 1.3 (0.2-0.8); MONOCYTES % 6.5 % (4.4-11.3); NEUTROPHILS # (AUTO) 11.8 (2.1-6.9); NEUTROPHILS % 61.2 % (38.7-80.0); PLATELET COUNT 283 x10e3/uL (140-360); RED BLOOD COUNT 4.88 x10e6/uL (3.6-5.1); RED CELL DISTRIBUTION WIDTH 15.6 % (11.7-14.4)
[2021-02-11 09:31] LABS: INR 0.96
[2021-02-11 09:32] LABS: PARTIAL THROMBOPLASTIN TIME 26.4 seconds (23.8-35.5)
[2021-02-11 09:39] LABS: ANION GAP 14.6 mmol/L (8-16); CALCIUM 9.3 mg/dL (8.4-10.2); CREATININE, SERUM 0.93 mg/dL (0.57-1.11); POTASSIUM 3.6 mmol/L (3.5-5.1)
[2021-02-11 09:58] LABS: LYMPHOCYTES % (MANUAL) 33 % (19-48); MONOCYTES % (MANUAL) 8 % (3.4-9.0); NEUTROPHILS % (MANUAL) 57 % (40-74); PLATELET ESTIMATE ADEQUATE; PLATELET MORPHOLOGY COMMENT FEW LARGE
[2021-02-11 09:59] LABS: RBC MORPHOLOGY COMMENT NORMAL
[~2021-02-12] MED LIST changes: -BUPIVACAINE HCL 0.5% INJ 30 ML VIAL INJ ONE; -DEXAMETHASONE SOD PHOS INJ 4 MG/ML VIAL ONE; +EPINEPHRINE HCL 1:1000 1ML 1 MG/ML AMP ONE; -FENTANYL CITRATE/PF 100MCG/2 ML INJ ONE; -HYDROMORPHONE 1MG/1ML INJ ONE; -LEVOFLOXACIN 500MG/D5W 100ML 100 ML IV ONE; -LIDOCAINE HCL 2% LOCAL INJ 5 ML SDV VIAL INJ ONE; -MIDAZOLAM HCL 2 MG/2 ML VIAL ONE; -MUPIROCIN 2% OINT 22 GM TUBE ONE; -ONDANSETRON HCL INJ 2MG/ML 2ML 2 MG/ML VIAL ONE; +OXYMETAZOLINE HCL 0.05% NAS 1 SPRAY BTL ONE; -PROMETHAZINE HCL (IM) 25 MG/ML VIAL IM ONE; -SEVOFLURANE INHAL SOLN 250 ML PEN BTL ONE
[2021-02-12 08:15] VITALS: BP 109/69
== END | disposition home or self-care (01) ==
LOC: OR 05:46
PROVIDERS: ATTEND Otolaryngology Otolaryngology/Facial Plastic Surgery
DX: G47.33 Obstructive sleep apnea (adult) (pediatric) (principal); E11.9 Type 2 diabetes mellitus without complications; I10 Essential (primary) hypertension; Z88.1 Allergy status to other antibiotic agents; Z88.5 Allergy status to narcotic agent; Z88.2 Allergy status to sulfonamides; Z88.8 Allergy status to other drugs, medicaments and biological substances; Z79.82 Long term (current) use of aspirin; Z79.01 Long term (current) use of anticoagulants; Z01.812 Encounter for preprocedural laboratory examination; Z20.822 Contact with and (suspected) exposure to COVID-19; K21.9 Gastro-esophageal reflux disease without esophagitis; K22.70 Barrett's esophagus without dysplasia; I25.10 Atherosclerotic heart disease of native coronary artery without angina pectoris; Z95.5 Presence of coronary angioplasty implant and graft
CPT/HCPCS: 31231; 36415 ×2; 80048; 82948; 85025; 85610; 85730; J2704; U0002; J0171

== ENCOUNTER → 2022-01-05 | Day surgery (SDC) | payer BC, MEDICARE ==
[~2022-01-05] MED LIST changes: -EPINEPHRINE HCL 1:1000 1ML 1 MG/ML AMP ONE; +MIDAZOLAM HCL 2 MG/2 ML VIAL ONE; +ONDANSETRON HCL INJ 2MG/ML 2ML 2 MG/ML VIAL ONE; -OXYMETAZOLINE HCL 0.05% NAS 1 SPRAY BTL ONE
[2022-01-05 12:55] VITALS: BP 103/64
== END | disposition home or self-care (01) ==
LOC: OR 09:02
PROVIDERS: ATTEND Internal Medicine Gastroenterology
DX: D12.4 Benign neoplasm of descending colon (principal); K63.5 Polyp of colon; K64.8 Other hemorrhoids; K31.7 Polyp of stomach and duodenum; K29.60 Other gastritis without bleeding; K21.00 Gastro-esophageal reflux disease with esophagitis, without bleeding; K22.70 Barrett's esophagus without dysplasia; K44.9 Diaphragmatic hernia without obstruction or gangrene; K57.30 Diverticulosis of large intestine without perforation or abscess without bleeding; E11.9 Type 2 diabetes mellitus without complications; I10 Essential (primary) hypertension; E66.3 Overweight; Z68.29 Body mass index [BMI] 29.0-29.9, adult; I25.2 Old myocardial infarction; Z95.5 Presence of coronary angioplasty implant and graft; G47.33 Obstructive sleep apnea (adult) (pediatric); E78.5 Hyperlipidemia, unspecified; I25.10 Atherosclerotic heart disease of native coronary artery without angina pectoris; F41.9 Anxiety disorder, unspecified; Z86.010 Personal history of colon polyps; Z88.1 Allergy status to other antibiotic agents; Z91.041 Radiographic dye allergy status; Z88.5 Allergy status to narcotic agent; Z88.0 Allergy status to penicillin; Z88.2 Allergy status to sulfonamides; Z88.8 Allergy status to other drugs, medicaments and biological substances; Z91.048 Other nonmedicinal substance allergy status; Z79.82 Long term (current) use of aspirin
CPT/HCPCS: 36415 ×2; 43239; 45385; 82948; J2250; J2405; J2704; 0223U

== ENCOUNTER → 2022-04-29 | Outpatient (CLI) | payer BC, MEDICARE ==
[~2022-04-29] MED LIST changes: -MIDAZOLAM HCL 2 MG/2 ML VIAL ONE; -ONDANSETRON HCL INJ 2MG/ML 2ML 2 MG/ML VIAL ONE; -POVIDONE IODINE 0.05% 0.05 % ML PO ONE; -PROPOFOL IV EMULSION 10 MG/ML 20 ML VIAL ONE
== END ==
LOC: NM 08:02
PROVIDERS: ATTEND Internal Medicine Gastroenterology
DX: E11.9 Type 2 diabetes mellitus without complications (principal); I10 Essential (primary) hypertension; E66.3 Overweight; K22.70 Barrett's esophagus without dysplasia; K21.00 Gastro-esophageal reflux disease with esophagitis, without bleeding; K29.00 Acute gastritis without bleeding; R11.0 Nausea; K58.9 Irritable bowel syndrome, unspecified; K63.89 Other specified diseases of intestine; K57.30 Diverticulosis of large intestine without perforation or abscess without bleeding
CPT/HCPCS: 78264; A9541

== ENCOUNTER → 2022-08-02 | Outpatient (CLI) | payer BC, MEDICARE | LOC: MRI 09:29 | PROVIDERS: ATTEND Family Medicine | DX: M54.12 Radiculopathy, cervical region (principal); M54.14 Radiculopathy, thoracic region; M54.16 Radiculopathy, lumbar region | CPT/HCPCS: 72141; 72146; 72148 ==

== ENCOUNTER 2022-08-08 08:00 | Outpatient (RCR) | payer BC, MEDICARE | END 2022-08-09 | LOC: PT 08:00 | PROVIDERS: ATTEND Physician Assistant | DX: M79.651 Pain in right thigh (principal); M76.891 Other specified enthesopathies of right lower limb, excluding foot; M79.18 Myalgia, other site ==

== ENCOUNTER → 2022-08-09 | Outpatient (CLI) | payer BC, MEDICARE | LOC: CT 09:41 | PROVIDERS: ATTEND Family Medicine | DX: M54.16 Radiculopathy, lumbar region (principal); M54.14 Radiculopathy, thoracic region; R05.3 Chronic cough | CPT/HCPCS: 71250 ==

== ENCOUNTER 2022-09-05 08:00 | Outpatient (RCR) | payer BC, MEDICARE | END 2022-09-06 | LOC: PT 08:00 | PROVIDERS: ATTEND Family Medicine | DX: M54.16 Radiculopathy, lumbar region (principal); M54.14 Radiculopathy, thoracic region ==

== ENCOUNTER 2022-10-04 07:58 | Outpatient (RCR) | payer BC, MEDICARE | END 2022-10-07 | LOC: PT 07:58 | PROVIDERS: ATTEND Family Medicine | DX: M76.891 Other specified enthesopathies of right lower limb, excluding foot (principal); M77.8 Other enthesopathies, not elsewhere classified ==

== ENCOUNTER 2022-11-19 16:47 | Emergency (ER) | payer BC, MEDICARE ==
[~2022-11-19] VITALS: Ht 162.6 cm; Wt 77.1 kg
[2022-11-19 17:25] LABS: BASOPHILS # (AUTO) 0.1 (0.0-0.1); BASOPHILS % 0.5 % (0.0-1.0); EOSINOPHILS # (AUTO) 0.5 (0.0-0.4); EOSINOPHILS % 3.9 % (0.0-6.0); HEMATOCRIT 34.5 % (34.2-44.1); HEMOGLOBIN 10.8 g/dL (12.0-16.0); LYMPHOCYTES % 22.5 % (18.0-39.1); MEAN CORPUSCULAR HEMOGLOBIN 25.9 pg (28-32); MEAN CORPUSCULAR HGB CONC 31.3 g/dL (31-35); MEAN CORPUSCULAR VOLUME 82.7 fL (81-99); MONOCYTES # (AUTO) 0.8 (0.2-0.8); MONOCYTES % 5.7 % (4.4-11.3); NEUTROPHILS % 66.9 % (38.7-80.0); PLATELET COUNT 379 x10e3/uL (140-360); RED BLOOD COUNT 4.17 x10e6/uL (3.6-5.1); RED CELL DISTRIBUTION WIDTH 15.3 % (11.7-14.4)
[2022-11-19] MEDS ORDERED: LACTATED RINGER'S 1,000 ML INJ ONE (17:30)
[2022-11-19 17:39] LABS: INR 1.02; PROTHROMBIN TIME 13.9 seconds (11.9-14.5)
[2022-11-19 17:49] LABS: ALBUMIN 3.5 g/dL (3.5-5.0); ANION GAP 15.3 mmol/L (8-16); CALCIUM 9.6 mg/dL (8.4-10.2); CREATININE, SERUM 0.85 mg/dL (0.57-1.11); POTASSIUM 4.3 mmol/L (3.5-5.1)
[2022-11-19] MEDS ORDERED: ONDANSETRON HCL INJ 2MG/ML 2ML 2 MG/ML VIAL IV STA (18:42)
[2022-11-19] MEDS ORDERED: ONDANSETRON ODT4 MG PO (20:13)
[2022-11-19 20:23] VITALS: BP 109/78; PULSE 95; RESP 17; TEMP 98.5; O2SAT 100
== END 2022-11-19 20:25 | disposition home or self-care (01) ==
LOC: ER 17:03
DX: I97.620 Postprocedural hemorrhage of a circulatory system organ or structure following other procedure (principal); R11.0 Nausea; K57.90 Diverticulosis of intestine, part unspecified, without perforation or abscess without bleeding; Z93.1 Gastrostomy status; I10 Essential (primary) hypertension; E11.9 Type 2 diabetes mellitus without complications; J45.909 Unspecified asthma, uncomplicated
CPT/HCPCS: 36415; 74176; 80053; 84484; 85025; 85610; 99284; J2405; J7121

== ENCOUNTER 2023-10-11 08:22 | Inpatient (IN) | payer BC, MEDICARE ==
[2023-10-04 09:16] LABS: BASOPHILS # (AUTO) 0.1 (0.0-0.1); BASOPHILS % 0.7 % (0.0-1.0); EOSINOPHILS # (AUTO) 0.1 (0.0-0.4); EOSINOPHILS % 1.1 % (0.0-6.0); HEMATOCRIT 42.7 % (34.2-44.1); HEMOGLOBIN 14.4 g/dL (12.0-16.0); LYMPHOCYTES # (AUTO) 2.5 (1.0-3.2); LYMPHOCYTES % 24.8 % (18.0-39.1); MEAN CORPUSCULAR HEMOGLOBIN 28.3 pg (28-32); MEAN CORPUSCULAR HGB CONC 33.7 g/dL (31-35); MEAN CORPUSCULAR VOLUME 83.9 fL (81-99); MONOCYTES # (AUTO) 0.6 (0.2-0.8); MONOCYTES % 5.7 % (4.4-11.3); NEUTROPHILS # (AUTO) 6.7 (2.1-6.9); NEUTROPHILS % 67.5 % (38.7-80.0); PLATELET COUNT 276 x10e3/uL (140-360); RED BLOOD COUNT 5.09 x10e6/uL (3.6-5.1); RED CELL DISTRIBUTION WIDTH 14.3 % (11.7-14.4); WHITE BLOOD COUNT 9.87 x10e3/uL (4.8-10.8)
[2023-10-04 09:51] LABS: ALBUMIN 4.1 g/dL (3.5-5.0); ALBUMIN/GLOBULIN RATIO 1.1 (0.8-2.0); ANION GAP 16.7 mmol/L (8-16); BILIRUBIN,TOTAL 0.4 mg/dL (0.2-1.2); CALCIUM 10.2 mg/dL (8.4-10.2); CREATININE, SERUM 1.05 mg/dL (0.57-1.11); POTASSIUM 3.7 mmol/L (3.5-5.1); TOTAL PROTEIN 7.9 g/dL (6.5-8.1)
[~2023-10-11] VITALS: Ht 162.6 cm; Wt 77.1 kg
[2023-10-11] VITALS (26 sets, daily range): BP systolic 106–143; BP diastolic 74–89; PULSE 67–85; RESP 10–25; TEMP 97.5–99; O2SAT 94–99
[~2023-10-11 08:22] MED LIST changes: +LINZESS290 MCG PO; +OMEPRAZOLE40 MG PO; +ONDANSETRON ODT4 MG PO
[2023-10-11] MEDS: LACTATED RINGER'S 1,000 ML ONE (08:55)
[2023-10-11] MEDS: LEVOFLOXACIN 500MG/D5W 100ML 100 ML IV ONE (09:46)
[2023-10-11] MEDS: SCOPOLAMINE 1 MG PATCH ONE (09:47)
[2023-10-11] MEDS ORDERED: PROPOFOL IV EMULSION 10 MG/ML 20 ML VIAL ONE (12:49)
[2023-10-11] MEDS ORDERED: LIDOCAINE HCL 2% LOCAL INJ 5 ML SDV VIAL INJ ONE (12:49)
[2023-10-11] MEDS ORDERED: FAMOTIDINE 20 MG/2 ML VIAL IV ONE (12:49)
[2023-10-11] MEDS ORDERED: ONDANSETRON HCL INJ 2MG/ML 2ML 2 MG/ML VIAL ONE (12:49)
[2023-10-11] MEDS ORDERED: KETAMINE 50MG/5ML SYR ONE (12:49)
[2023-10-11] MEDS ORDERED: DEXAMETHASONE SOD PHOS INJ 4 MG/ML SDV ONE (12:49)
[2023-10-11] MEDS ORDERED: SEVOFLURANE INHAL SOLN 250 ML PEN BTL ONE (12:49)
[2023-10-11] MEDS ORDERED: ACETAMINOPHEN 1000 MG/100 ML IV ONE (12:49)
[2023-10-11] MEDS ORDERED: ROCURONIUM BROMIDE 10 MG/ML 5ML VIAL IV ONE (12:49)
[2023-10-11] MEDS ORDERED: SUGAMMADEX SODIUM 200 MG/2 ML VIAL IV ONE (12:49)
[2023-10-11] MEDS ORDERED: MIDAZOLAM HCL 2 MG/2 ML VIAL ONE (12:56)
[2023-10-11] MEDS ORDERED: FENTANYL CITRATE/PF 100MCG/2 ML INJ ONE (12:56)
[2023-10-11] MEDS ORDERED: MINERAL OIL STERILE 10ML VIAL ONE (13:14)
[2023-10-11] MEDS ORDERED: NALOXONE HCL INJ 0.4 MG/ML AMP IV PRN (14:45)
[2023-10-11] MEDS: HYDROMORPHONE 0.2MG/ML-SOD CHL 30ML PCA SYRINGE IV PRN (15:15)
[2023-10-11] MEDS ORDERED: DEXTROSE 50% SYRINGE 50 ML IV PRN (16:15)
[2023-10-11] MEDS ORDERED: ACETAMINOPHEN 1000 MG/100 ML IV PRN (18:00)
[2023-10-11] MEDS: SODIUM CHLORIDE 0.9% 250ML IRRIG IR SCH (18:20)
[2023-10-11] MEDS: PROMETHAZINE 12.5MG/ NACL 0.9% 12.5 MG/50 ML BAG IV PRN (19:24)
[2023-10-11] MEDS: BUDESONIDE/FORMOTEROL 160/4.5MCG INHALER INH SCH (19:30)
[2023-10-11] MEDS: SODIUM CHLORIDE 0.9% 1000ML 1,000 ML IV SCH (21:23)
[2023-10-12] VITALS (49 sets, daily range): BP systolic 111–160; BP diastolic 61–91; PULSE 66–99; RESP 10–25; TEMP 98.4–99.3; O2SAT 86–99
[2023-10-12] MEDS: INSULIN REGULAR, HUMAN 100 UNIT/1 ML SQ SCH
[2023-10-12] MEDS: ALBUTEROL 90 MCG/ACT INHALER INH PRN (05:49)
[2023-10-12 06:41] LABS: BASOPHILS # (AUTO) 0.1 (0.0-0.1); BASOPHILS % 0.3 % (0.0-1.0); EOSINOPHILS % 0.1 % (0.0-6.0); HEMATOCRIT 34.8 % (34.2-44.1); HEMOGLOBIN 11.6 g/dL (12.0-16.0); LYMPHOCYTES # (AUTO) 1.7 (1.0-3.2); LYMPHOCYTES % 9.7 % (18.0-39.1); MEAN CORPUSCULAR HEMOGLOBIN 28.4 pg (28-32); MEAN CORPUSCULAR HGB CONC 33.3 g/dL (31-35); MEAN CORPUSCULAR VOLUME 85.3 fL (81-99); MONOCYTES # (AUTO) 1.4 (0.2-0.8); MONOCYTES % 7.8 % (4.4-11.3); NEUTROPHILS # (AUTO) 14.4 (2.1-6.9); NEUTROPHILS % 81.7 % (38.7-80.0); PLATELET COUNT 220 x10e3/uL (140-360); RED BLOOD COUNT 4.08 x10e6/uL (3.6-5.1); WHITE BLOOD COUNT 17.64 x10e3/uL (4.8-10.8)
[2023-10-12 07:03] LABS: ALBUMIN/GLOBULIN RATIO 1.1 (0.8-2.0); ANION GAP 13.4 mmol/L (8-16); BILIRUBIN,TOTAL 0.4 mg/dL (0.2-1.2); CALCIUM 8.4 mg/dL (8.4-10.2); CREATININE, SERUM 0.77 mg/dL (0.57-1.11); POTASSIUM 4.4 mmol/L (3.5-5.1); TOTAL PROTEIN 5.7 g/dL (6.5-8.1)
[2023-10-12] MEDS: LEVOFLOXACIN 500MG/D5W 100ML 100 ML IV ONE (08:22)
[2023-10-13] VITALS (28 sets, daily range): BP systolic 105–152; BP diastolic 58–99; PULSE 63–119; RESP 13–24; TEMP 97.7–99.9; O2SAT 93–99
[2023-10-13 06:06] LABS: BASOPHILS # (AUTO) 0.1 (0.0-0.1); BASOPHILS % 0.4 % (0.0-1.0); EOSINOPHILS # (AUTO) 0.3 (0.0-0.4); EOSINOPHILS % 1.9 % (0.0-6.0); HEMATOCRIT 34.2 % (34.2-44.1); HEMOGLOBIN 10.9 g/dL (12.0-16.0); LYMPHOCYTES # (AUTO) 1.4 (1.0-3.2); LYMPHOCYTES % 9.3 % (18.0-39.1); MEAN CORPUSCULAR HEMOGLOBIN 28.2 pg (28-32); MEAN CORPUSCULAR HGB CONC 31.9 g/dL (31-35); MEAN CORPUSCULAR VOLUME 88.6 fL (81-99); MONOCYTES % 6.6 % (4.4-11.3); NEUTROPHILS # (AUTO) 11.9 (2.1-6.9); NEUTROPHILS % 81.3 % (38.7-80.0); PLATELET COUNT 201 x10e3/uL (140-360); RED BLOOD COUNT 3.86 x10e6/uL (3.6-5.1); RED CELL DISTRIBUTION WIDTH 15.1 % (11.7-14.4); WHITE BLOOD COUNT 14.58 x10e3/uL (4.8-10.8)
[2023-10-13 06:53] LABS: ALBUMIN 2.7 g/dL (3.5-5.0); ALBUMIN/GLOBULIN RATIO 0.9 (0.8-2.0); BILIRUBIN,TOTAL 0.6 mg/dL (0.2-1.2); CALCIUM 8.5 mg/dL (8.4-10.2); CREATININE, SERUM 0.78 mg/dL (0.57-1.11); TOTAL PROTEIN 5.6 g/dL (6.5-8.1)
[2023-10-13] MEDS: ACETAMINOPHEN 1000 MG/100 ML IV PRN (11:33)
[2023-10-13] MEDS ORDERED: ACETAMINOPHEN 1000 MG/100 ML IV SCH (12:00)
[2023-10-13] MEDS: HYDROMORPHONE 0.2MG/ML-SOD CHL 30ML PCA SYRINGE IV PRN (17:31)
[2023-10-14] VITALS (18 sets, daily range): BP systolic 129–147; BP diastolic 71–94; PULSE 50–113; RESP 13–28; TEMP 98–98.9; O2SAT 91–100
[2023-10-14 07:06] LABS: BASOPHILS % 0.2 % (0.0-1.0); EOSINOPHILS # (AUTO) 0.4 (0.0-0.4); EOSINOPHILS % 2.9 % (0.0-6.0); HEMOGLOBIN 9.6 g/dL (12.0-16.0); LYMPHOCYTES # (AUTO) 1.4 (1.0-3.2); MEAN CORPUSCULAR HEMOGLOBIN 27.9 pg (28-32); MEAN CORPUSCULAR VOLUME 87.2 fL (81-99); MONOCYTES # (AUTO) 0.8 (0.2-0.8); MONOCYTES % 6.6 % (4.4-11.3); NEUTROPHILS # (AUTO) 10.1 (2.1-6.9); NEUTROPHILS % 78.8 % (38.7-80.0); PLATELET COUNT 189 x10e3/uL (140-360); RED BLOOD COUNT 3.44 x10e6/uL (3.6-5.1); WHITE BLOOD COUNT 12.78 x10e3/uL (4.8-10.8)
[2023-10-14 07:56] LABS: ANION GAP 12.6 mmol/L (8-16); CALCIUM 8.4 mg/dL (8.4-10.2); CREATININE, SERUM 0.65 mg/dL (0.57-1.11); POTASSIUM 3.6 mmol/L (3.5-5.1)
[2023-10-14] MEDS: LORAZEPAM INJ 2 MG/ML VIAL IV ONE (11:27)
[2023-10-14] MEDS ORDERED: ONDANSETRON HCL INJ 2MG/ML 2ML 2 MG/ML VIAL IV PRN (15:30)
[2023-10-14] MEDS: ACETAMINOPHEN 1000 MG/100 ML IV PRN (15:54)
[2023-10-14] MEDS: BISACODYL 10 MG SUPP PR SCH (21:00)
[2023-10-14] MEDS: LORAZEPAM INJ 2 MG/ML VIAL IV PRN (23:18)
[2023-10-15] VITALS (10 sets, daily range): BP systolic 127–159; BP diastolic 72–95; PULSE 70–90; RESP 16–20; TEMP 98–99; O2SAT 97–100
[2023-10-15] MEDS ORDERED: PROMETHAZINE 12.5MG/ NACL 0.9% 12.5 MG/50 ML BAG IV PRN (02:30)
[2023-10-15] MEDS: HYDROMORPHONE 1MG/1ML INJ IV PRN (02:36)
[2023-10-16 03:25] VITALS: BP 138/88; PULSE 70; RESP 18; TEMP 98.4; O2SAT 98
[2023-10-16 04:19] VITALS: PULSE 79
[2023-10-16 08:00] VITALS: BP 138/88; PULSE 79; RESP 18; TEMP 98.4; O2SAT 98
[2023-10-16 08:40] VITALS: BP 119/89; PULSE 65; RESP 17; TEMP 98.5; O2SAT 98
[2023-10-16 09:58] VITALS: PULSE 60; RESP 18; O2SAT 97
[2023-10-16 12:32] VITALS: BP 147/79; PULSE 71; RESP 16; TEMP 98.2; O2SAT 100
== END 2023-10-16 14:52 | disposition home or self-care (01) | DRG 41 ==
LOC: OR 08:22 → PACU V 15:00 → ICU 16:41 → MED/SURG 10-14 13:59
PROVIDERS: ADMIT Surgery; ATTEND Surgery
PROC: 0D160ZA Bypass Stomach to Jejunum, Open Approach (ICD-10-PCS; 2023-10-11)
PROC: 0DP Gastrointestinal System, Removal (ICD-10-PCS; 2023-10-11)
PROC: 0JPT0MZ Removal of Stimulator Generator from Trunk Subcutaneous Tissue and Fascia, Open Approach (ICD-10-PCS; 2023-10-11)
PROC: 0DB60ZZ Excision of Stomach, Open Approach (ICD-10-PCS; principal; 2023-10-11 10:57)
DX: E11.43 Type 2 diabetes mellitus with diabetic autonomic (poly)neuropathy (principal); R71.0 Precipitous drop in hematocrit; K31.84 Gastroparesis; Z45.42 Encounter for adjustment and management of neurostimulator; I10 Essential (primary) hypertension; J45.20 Mild intermittent asthma, uncomplicated; I25.10 Atherosclerotic heart disease of native coronary artery without angina pectoris; Z95.5 Presence of coronary angioplasty implant and graft; I05.0 Rheumatic mitral stenosis; E78.00 Pure hypercholesterolemia, unspecified; Z87.891 Personal history of nicotine dependence; Z79.899 Other long term (current) drug therapy
CPT/HCPCS: 36415; 71046; 80048; 80053; 82948; 85025; 88300; 88304; 88307; 94664; 94799; J0171; J1100; J1170; J1956; J2001; J2060; J2250; J2405; J2550; J2795; J7030

== ENCOUNTER 2024-06-04 10:00 | Outpatient (RCR) | payer BC, MEDICARE ==
[~2024-06-04 10:00] MED LIST changes: +B12 ACTIVE1000 MCG INJ; +PLAVIX75 MG PO
== END 2024-06-08 ==
LOC: PT 10:00
PROVIDERS: ATTEND Family Medicine
DX: R42 Dizziness and giddiness (principal)

== ENCOUNTER 2024-06-21 07:00 | Outpatient (RCR) | payer BC, MEDICARE | END 2024-07-09 | LOC: PT 07:00 | PROVIDERS: ATTEND Family Medicine | DX: R42 Dizziness and giddiness (principal) ==

== ENCOUNTER → 2024-07-26 | Outpatient (REF) | payer BC, MEDICARE | LOC: DX 07:53 | PROVIDERS: ATTEND Surgery | DX: R11.0 Nausea (principal); R10.9 Unspecified abdominal pain; Z98.84 Bariatric surgery status | CPT/HCPCS: 74246; 74250 ==

== ENCOUNTER → 2024-09-06 | Day surgery (SDC) | payer BC, MEDICARE ==
[2024-09-04 08:48] LABS: BASOPHILS # (AUTO) 0.1 (0.0-0.1); BASOPHILS % 0.6 % (0.0-1.0); EOSINOPHILS # (AUTO) 0.2 (0.0-0.4); EOSINOPHILS % 1.7 % (0.0-6.0); HEMATOCRIT 33.8 % (34.2-44.1); HEMOGLOBIN 10.7 g/dL (12.0-16.0); LYMPHOCYTES # (AUTO) 2.2 (1.0-3.2); LYMPHOCYTES % 25.6 % (18.0-39.1); MEAN CORPUSCULAR HEMOGLOBIN 23.7 pg (28-32); MEAN CORPUSCULAR HGB CONC 31.7 g/dL (31-35); MEAN CORPUSCULAR VOLUME 74.9 fL (81-99); MONOCYTES # (AUTO) 0.5 (0.2-0.8); MONOCYTES % 5.8 % (4.4-11.3); NEUTROPHILS # (AUTO) 5.7 (2.1-6.9); NEUTROPHILS % 66.1 % (38.7-80.0); PLATELET COUNT 345 x10e3/uL (140-360); RED BLOOD COUNT 4.51 x10e6/uL (3.6-5.1); RED CELL DISTRIBUTION WIDTH 18.8 % (11.7-14.4); WHITE BLOOD COUNT 8.67 x10e3/uL (4.8-10.8)
[2024-09-04 09:14] LABS: ALBUMIN 3.7 g/dL (3.5-5.0); ALBUMIN/GLOBULIN RATIO 1.2 (0.8-2.0); ANION GAP 13.6 mmol/L (8-16); BILIRUBIN,TOTAL 0.3 mg/dL (0.2-1.2); CALCIUM 9.5 mg/dL (8.4-10.2); CREATININE, SERUM 0.83 mg/dL (0.57-1.11); POTASSIUM 3.6 mmol/L (3.5-5.1); TOTAL PROTEIN 6.9 g/dL (6.5-8.1)
[~2024-09-06] MED LIST changes: +BIOTIN10 MG PO; +LACTATED RINGER'S 1,000 ML ONE; +LIDOCAINE HCL 2% LOCAL INJ 5 ML SDV VIAL INJ ONE; +MIDAZOLAM HCL 2 MG/2 ML VIAL ONE; +PROPOFOL IV EMULSION 10 MG/ML 20 ML VIAL ONE; +PROPOFOL IV EMULSION 50 ML IV ONE
[2024-09-06 10:18] VITALS: TEMP 98
[2024-09-06 10:40] VITALS: BP 124/71; PULSE 78; RESP 16; O2SAT 98
== END | disposition home or self-care (01) ==
LOC: OR 07:18
PROVIDERS: ATTEND Surgery
DX: K25.3 Acute gastric ulcer without hemorrhage or perforation (principal); D12.2 Benign neoplasm of ascending colon; Z93.4 Other artificial openings of gastrointestinal tract status; K22.70 Barrett's esophagus without dysplasia; K57.30 Diverticulosis of large intestine without perforation or abscess without bleeding; E11.9 Type 2 diabetes mellitus without complications; I10 Essential (primary) hypertension; J45.909 Unspecified asthma, uncomplicated; M25.511 Pain in right shoulder; M54.10 Radiculopathy, site unspecified; F41.9 Anxiety disorder, unspecified; F32.A Depression, unspecified; F17.210 Nicotine dependence, cigarettes, uncomplicated; Z01.810 Encounter for preprocedural cardiovascular examination; Z01.812 Encounter for preprocedural laboratory examination; Z79.02 Long term (current) use of antithrombotics/antiplatelets; Z79.899 Other long term (current) drug therapy; Z95.5 Presence of coronary angioplasty implant and graft; Z85.44 Personal history of malignant neoplasm of other female genital organs
CPT/HCPCS: 36415; 43235; 45385; 80053; 85025; 88305; 93005; J2003; J2250; J2704; J7121; 43239

== ENCOUNTER → 2025-02-05 | Day surgery (SDC) | payer BC, MEDICARE ==
[2025-01-30 10:23] LABS: BASOPHILS % 0.6 % (0.0-1.0); EOSINOPHILS % 1.7 % (0.0-6.0); LYMPHOCYTES % 31.2 % (18.0-39.1); MONOCYTES % 6.5 % (4.4-11.3); NEUTROPHILS % 59.7 % (38.7-80.0); RED CELL DISTRIBUTION WIDTH 15.8 % (11.7-14.4)
[2025-01-30 10:48] LABS: EST GLOMERULAR FILTRATION RATE 63.0 ML/MIN (>=60)
[~2025-02-05] MED LIST changes: +CARAFATE1 GM/10 ML PO; +ETOMIDATE 40 MG/ 20ML VIAL IV ONE; +FAMOTIDINE 20 MG/2 ML VIAL IV ONE; +FENTANYL CITRATE/PF 100MCG/2 ML INJ ONE; +FLONASE ALLERG9.9 ML INH; +GLYCOPYRROLATE INJ 0.2 MG/ML VIAL ONE; -LACTATED RINGER'S 1,000 ML ONE; +METOPROLOL SUCC25 MG PO; +ONDANSETRON HCL INJ 2MG/ML 2ML 2 MG/ML VIAL ONE; +PANTOPRAZOLE SO40 MG PO; +PHENYLEPHRINE HCL 1% 10 MG/ML VIAL ONE; -PROPOFOL IV EMULSION 50 ML IV ONE; +SODIUM CHLORIDE 0.9% INJ 10 ML VIAL ONE
[2025-02-05 09:15] VITALS: TEMP 97.8
[2025-02-05] MEDS: LACTATED RINGER'S 1,000 ML ONE (09:23)
[2025-02-05 09:45] VITALS: BP 104/63; PULSE 65; RESP 16; O2SAT 100
== END | disposition home or self-care (01) ==
LOC: OR 06:22
PROVIDERS: ATTEND Surgery
DX: Z09 Encounter for follow-up examination after completed treatment for conditions other than malignant neoplasm (principal); Z87.11 Personal history of peptic ulcer disease; I10 Essential (primary) hypertension; I25.10 Atherosclerotic heart disease of native coronary artery without angina pectoris; Z95.5 Presence of coronary angioplasty implant and graft; E78.5 Hyperlipidemia, unspecified; J44.9 Chronic obstructive pulmonary disease, unspecified; Z72.0 Tobacco use; F41.9 Anxiety disorder, unspecified; G89.29 Other chronic pain; Z01.812 Encounter for preprocedural laboratory examination; Z01.810 Encounter for preprocedural cardiovascular examination; Z01.818 Encounter for other preprocedural examination
CPT/HCPCS: 36415; 43235; 71046; 80053; 85025; J1308; J2003; J2250; J2371; J2405; J2704; J3010; J7121